=== PATIENT | male | born 1950 | race Caucasian/White ===

== ENCOUNTER 2017-07-02 20:19 | Emergency (ER) | payer OTHER, SELFPAY ==
[2017-07-02 20:37] VITALS: BP 137/75; PULSE 140; RESP 12; TEMP 36.4; O2SAT 99
--- NOTE | 2017-07-02 20:58 | DI.RAD.S_ITS ---
PROCEDURE: XR CHEST 1V INDICATIONS: afib TECHNIQUE: One view of the chest was acquired. COMPARISON: None. FINDINGS: Surgical changes and devices: None. Lungs and pleura: No pleural effusions or pneumothorax. Lungs are clear. Mediastinum: Mediastinal contours appear normal. Heart size is normal. Bones and chest wall: No suspicious bony lesions. Overlying soft tissues appear unremarkable. IMPRESSION: No acute process. Dictated by: Jo-Ann Decker M.D. on 07/02/2017 at 21:13 Approved by: Jo-Ann Decker M.D. on 07/02/2017 at 21:13
[2017-07-02 21:11] LABS: Calcium 9.1 mg/dL (8.4-10.2); Estimated Glomerular Filt Rate > 60.0 mL/min (>60); Glucose 115 mg/dL (80-110); HEMOLYSIS 28 (0-50); Magnesium 2.2 mg/dL (1.6-2.3); Potassium 3.8 mmol/L (3.4-5.1); Sodium 142 mmol/L (137-145)
[2017-07-02 21:17] LABS: Add Manual Diff / Slide Review NO; Basophils Percent Auto 0.5 % (0-2); Eosinophils Percent Auto 2.8 % (2-4); Hematocrit 41.7 % (41-53); Hemoglobin 14.7 g/dL (13.5-17.5); Lymphocytes Percent Auto 30.8 % (25-40); Mean Corpuscular HGB Conc 35.3 % (30-36); Mean Corpuscular Hemoglobin 34.2 PG (26-34); Mean Corpuscular Volume 97.1 fL (80-100); Neutrophils Absolute Auto 5100 /uL (3000-5900); Neutrophils Percent Auto 58.9 % (50-75); Platelet Count 190 X10^3/uL (150-400); Red Blood Cell Count 4.29 X10^6/uL (4.5-5.9); Red Cell Distribution Width 13.1 % (11.6-14.8); White Blood Cell Count 8.7 X10^3/uL (4.5-11.0)
[2017-07-02 21:24] LABS: Troponin I < 0.012 ng/mL (0.01-0.034)
[2017-07-02 21:28] LABS: Free T4, Direct Thyroxine 0.84 ng/dL (0.78-2.19)
[2017-07-02] MEDS: SODIUM CHLORIDE 0.9% 1,000 ML 1000 ML IV (21:37)
[2017-07-02 21:42] LABS: Thyroid Stimulating Hormone 2.11 uIU/mL (0.47-4.68)
[2017-07-03] VITALS (8 sets, daily range): BP systolic 110–169; BP diastolic 73–94; PULSE 56–106; RESP 12–17; O2SAT 96–100
[2017-07-03] MEDS: ETOMIDATE 2 MG/ML VIAL 10 MG IV
--- NOTE | 2017-07-03 00:19 | ED.ARRPALP ---
HPI - Arrhythmia/Palpitations General Chief Complaint: Arrhythmia/Palpitations Stated Complaint: AFIB History of Present Illness HPI narrative: HPI 67-year-old male with a history of pAfib presents for evaluation of one day of palpitations and exercise intolerance. Patient reports a long-standing issue with atrial fibrillation, patient ablation 4 years ago. 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 Patient takes aspirin daily as is normally in a sinus rhythm. Last atrial fibrillation was approximately one year ago. Patient is certain that his symptoms began at 24 hours ago, patient was seated and felt a sudden change in his heart rate consistent with his long-standing symptomatology with atrial fibrillation. * Medications: denies recent medication changes. * Caffeine: denies any change in baseline caffeine use. * Alcohol: denies preceding significant alcohol use. * Drugs: denies stimulant use. M/S/F/SocHx notable for: please see HPI; remainder reviewed with patient and in chart. ROS: Negative constitutional, eye, cardiovascular, pulmonary, GI, , MSK, skin, neurologic, psychiatric, endocrine unless noted in the HPI. Exam Gen: Pleasant, non-toxic appearing, resting comfortably. HEENT: NC, AT, PEERL, EOMI. Resp: Clear to auscultation bilaterally, normal work of breathing, no accessory muscle usage. Card: Irregularly irregular rate with no murmurs, rubs, or gallops, extremities warm and well perfused. GI: Non-tender to palpation throughout all quadrants, no focal tenderness at McBurney's point, negative Alejo's sign, non-distended, no rebound or guarding. : No suprapubic tenderness to palpation.No CVA tenderness to percussion bilaterally.Deferred MSK: No visible deformities, strength and tone without visually appreciable deficit. Skin: Normal color with no visible lesions. Neuro: AO x 3, no facial asymmetry, vision and hearing WNL. Psych: Mood and affect appropriate. Labs / Imaging: EKG: AFib, no new ST segment changes, new LBBB, or T-wave changes that would suggest acute ischemia. CXR: No acute cardiopulmonary disease process. WBC 8.7, 14.7, sodium 142, potassium 3.8, creatinine 1.00, magnesium 2.2, troponin less than 0.012 TSH 2.11, free T4 0.4 EKG (repeat): SR 58 bpm, no new ST segment changes, new LBBB, or T-wave changes that would suggest acute ischemia. MDM Previous chart, nursing note, labs, imaging, and vitals reviewed. A: 67-year-old male with a history of pAfib presents for evaluation of one day of palpitations and exercise intolerance. DDx & Evaluation: * Rate Control: after extensive discussion regarding treatment options the patient elected to pursue electrical cardioversion. This was successfully performed as documented below. Patient was premedicated with Eliquis. * Etiology * Anemia - H&H within normal limits. * Infection - history, exam, and chest x-ray without evidence of clinically appreciable active infectious process. * Cardiac (myocarditis/pericarditis/ACS/heart failure) - doubt myocarditis and pericarditis given the absence of characteristic changes in the patient's repeat ECG as well as the lack of significant troponin elevation, similarly doubt ACS given the absence of ischemia and are negative troponin. Doubt heart failure given the lack of edema on imaging and exam as well as a negative history. * Hyperthyroidism - TSH within normal limits. * PE - doubt PE given the absence of chest pain, prior DVT or PE, or other identifiable risk factors; as dyspnea in the setting of new onset A. fib is not an independent predictor further evaluation is not presently indicated. * Drugs - history without evidence for recent alcohol, caffeine, or other stimulant use that may have triggered today's presenting episode. * ASHA - no known history of obstructive sleep apnea, furthermore the patient's habitus is not strongly suggestive of an undiagnosed sleep apnea; further evaluation deferred to the patient's primary care physician. * Idiopathic/age - suspect idiopathic given the relative exclusion of alternate etiologies, further evaluation deferred to the patient's primary physician. * Anticoagulation - CHADS-VASc value (Age - 1, Gender - 0, CHF - 0, HTN - 0, Stroke/TIA/Thromboembolism - 0, Vascular Disease - 0, DM - 0); 30 day Post conversion prescription for Eliquis provided. Critical Care Time Organ system(s): Cardiovascular. Intervention: Assessment of the patient, interpretation of studies, and communication with the patient. Time: 30 minutes were spent directly related to patient care exclusive of separately billed procedures. Impression: Atrial fibrillation (please reference below for remainder of encounter information) After discussion with the patient regarding anticoagulation options for their atrial fibrillation including risks and benefits of different treatment options Apixiban was chosen for anticoagulation. [As the patient weighs > 60 kg, has a Cr < 1.5 mg/dL, and a is not taking any strong CY inducers (Carbamazepine, Enzalutamide, Fosphenytoin, Lumacaftor, Mitotane, Phenobarbital, Phenytoin, Primidone, Rifabutin, Rifampin, or Rifapentine - per patient and chart), the were prescribed 5 mg BID for stroke prophylaxis for their atrial fibrillation SEDATION Pre-Procedure: Consent: Written. Risks and benefits including adverse drug reaction, pain, nausea, vomiting, the need for respiratory support, and in extremely rare instances organ damage and , were reviewed with the patient, the patient understood and consented to sedation. ASA: 1, Mallampati 2 , 4+ hours NPO. Y ??? Patient (name and ID) and procedure. Y ??? airway cart Y ??? BVM Y ??? Suction Y ??? capnography, SaO2, HR, BP functioning and within acceptable limits. Patient on supplemental oxygen via a nasal cannula. Y ??? review potential complications and management plans. Procedure The patient was given a total of 10 mg of Etomidate with deep sedation achieved. There were no significant adverse events and the patient tolerated the procedure well. Total time: 15 minutes. Post-Procedure I remained at the bedside until the patient was clearing sedation, vitals signs, airway and overall clinical condition were stable. RT and nursing remained present monitoring the patient per protocol through complete clearing of sedation and I was immediately available in the department throughout. Cardioversion Indication: Atrial Fibrillation. Consent: Written. Risks and benefits including post-procedural arrhythmias, pain, electrical tinoco, and stroke were discussed with the patient. The patient understood and agreed to proceed with the procedure. After a time out in which the patient's identity was confirmed verbally and by their wrist band, synchronized cardioversion was performed at 200 J via right upper and left lower chest. A continuous 3 lead electrocardiogram demonstrated conversion from atrial fibrillation to a sinus rhythm. There were no complications and the patient tolerated the procedure well. Related Data Home Medications Medication Instructions Recorded Confirmed CA PANTOTHENATE/FOLIC ACID/VIT 1 tab PO Q DAY #0 09/22/11 (MULTIVITAMIN) CHOLECALCIFEROL (VITAMIN D3) 2,000 iu PO Q DAY #0 09/22/11 (Vitamin D) Fish Oil (#CARDI-OMEGA) 1,000 mg PO Q DAY #0 09/22/11 ASCORBIC ACID (VITAMIN C) 1,000 mg PO #0 10/20/11 [fiber tab] Q DAY #0 05/01/16 aspirin 81 PO Q DAY #0 05/01/16 docusate sodium 200 PO Q DAY #0 05/01/16 Previous Rx's Medication Instructions Recorded metoprolol tartrate 12.5 mg PO QDAY #45 tab 05/10/17 tamsulosin [Flomax] 0.4 mg PO QDAY #90 cap 05/10/17 varicella-zoster gE-AS01B (PF) 0.5 ml IM X1 #1 ea 05/10/17 [Shingrix (PF)] apixaban [Eliquis] 5 mg PO BID #60 tab 07/03/17 Allergies Allergy/AdvReac Type Severity Reaction Status Date / Time No Known Allergies Allergy Uncoded 05/23/17 11:46 PFSH Surgical History History of cataract removal with insertion of prosthetic lens History of oral surgery Status post arthroscopy Family History Brother Age: 69 Diabetes mellitus Heart disease Prostate cancer, Onset Age: 67 Father Diabetes mellitus Heart disease Hypertension High cholesterol Alcoholism Parkinsons Social History Smoking Status: Never smoker Exam Initial Vital Signs Initial Vital Signs: Vital Signs Temperature 97.6 F 07/02/17 20:37 Pulse Rate 140 H 07/02/17 20:37 Respiratory Rate 12 07/02/17 20:37 Blood Pressure 137/75 H 07/02/17 20:37 Pulse Oximetry 99 07/02/17 20:37 Course Orders Ordered: ED Orders 07/02/17 20:30 Basic Metabolic Panel Stat Complete Blood Count AUTO DIFF Stat Free T4 Free Thyroxine Stat Magnesium Stat Thyroid Stimulating Hormone Stat Troponin I Stat 07/02/17 20:58 XR chest 1V Stat 07/03/17 EKG-12 Lead Routine Discontinued Medications Apixaban (Eliquis) 5 mg PO NOW ONE Stop: 07/02/17 22:40 Last Admin: 07/03/17 00:39 Dose: 5 mg Etomidate (Amidate) 10 mg IV NOW ONE Stop: 07/02/17 22:40 Sodium Chloride (Normal Saline 0.9%) 1,000 mls @ 1,000 mls/hr IV BOLUS ONE Stop: 07/02/17 21:57 Last Admin: 07/02/17 21:37 Dose: 1,000 mls/hr Vital Signs - 8 hr 07/02/17 20:37 07/03/17 00:27 Temperature 97.6 F Pulse Rate 140 H 56 L Respiratory Rate 12 12 Blood Pressure 137/75 H Blood Pressure [Left Arm] 125/81 H Pulse Oximetry 99 98 MDM - Arrhythmia/Palpitations Lab Data Result diagrams: 07/02/17 20:30 07/02/17 20:30 Lab Results 07/02/17 07/02/17 07/02/17 Range/Units 20:30 20:30 20:30 WBC 8.7 (4.5-11.0) X10^3/uL RBC 4.29 L (4.5-5.9) X10^6/uL Hgb 14.7 (13.5-17.5) g/dL Hct 41.7 (41-53) % MCV 97.1 (80-100) fL MCH 34.2 H (26-34) PG MCHC 35.3 (30-36) % RDW 13.1 (11.6-14.8) % Plt Count 190 (150-400) X10^3/uL Neut % (Auto) 58.9 (50-75) % Lymph % (Auto) 30.8 (25-40) % Kerr % (Auto) 7.0 (3-14) % Eos % (Auto) 2.8 (2-4) % Baso % (Auto) 0.5 (0-2) % Neut # (Auto) 5100 (0173-0065) /uL Sodium 142 (137-145) mmol/L Potassium 3.8 (3.4-5.1) mmol/L Chloride 105.0 (98-107) mmol/L Carbon Dioxide 25.0 (22-32) mmol/L BUN 21.0 H (9-20) mg/dL Creatinine 1.00 (0.66-1.25) mg/dL Estimated GFR > 60.0 (>60) mL/min BUN/Creatinine Ratio 21.0 (6-22) Glucose 115 H (80-110) mg/dL Calcium 9.1 (8.4-10.2) mg/dL Magnesium 2.2 (1.6-2.3) mg/dL Troponin I < 0.012 (0.01-0.034) ng/mL TSH 2.11 (0.47-4.68) uIU/mL Free T4 0.84 (0.78-2.19) ng/dL Discharge Plan Departure Patient Disposition: Home, Self-Care Clinical Impression: Atrial fibrillation Activity Restrictions/Additional Instructions: You were in seen in the [facility] Emergency Department for evaluation of atrial fibrillation. Please read and follow all of the instructions below. 1. 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 2. If you are taking aspirin only for atrial fibrillation stroke prevention please discontinue taking aspirin and take only the prescribed Apixiban (Eliquis). 3. If you have insurance issues with Eliquis, you may use either the video production specialist co-pay card (online at [email or web address]) or contact your primary care physician to transition to an alternate medication. If you have any new symptoms or if you are at all concerned about your health please return immediately to the emergency department. If you do not have a primary care physician, please contact [facility], [facility] at [phone], [facility] at [phone], or [facility] at [phone] to arrange follow up care. If you have health insurance, please also contact your insurer for a list of accepting providers under your policy, you may contact these providers for further health care. Your care today was limited to identifying and treating emergent medical problems only. Many people have subtle differences in their test results that require follow up with their outpatient physician(s) to correctly determine if this represents a normal variation or concerning abnormality with respect to your specific health. The care given to you today was limited to identifying and treating emergent medical problems - you need to request a copy of all of your medical records from today's visit and follow up with your outpatient physician(s) to review both today's visit and your overall health. What is atrial fibrillation and atrial flutter? Atrial fibrillation and flutter are a common heart rhythm problem. This condition puts you at risk of stroke, heart attack, and other problems. Another term for atrial fibrillation is A-fib???. Atrial flutter is also called ???A-flutter???. In people with these rhythms, the electrical signals that control the heartbeat are abnormal. As a result, the top 2 chambers of the heart stop pumping effectively, and a small amount of the blood that should move out of these chambers gets left behind. As the blood pools, it can start to form clots. These clots can travel to the brain through the blood vessels, and cause strokes. In some people, these rhythms never go away. In others, these can come and go, even with treatment. If you had one or more bouts of atrial fibrillation or flutter, but have a normal heart rhythm now, ask your doctor what you can do to keep your atrial fibrillation or flutter from coming back. Some people can reduce their chances of having atrial fibrillation or flutter again by: ? Controlling their blood pressure ? Not drinking a lot of alcohol in one sitting (limit to 1 to 2 drinks in one day) ? Cutting down on caffeine ? Getting treatment for an overactive thyroid gland ? Getting regular exercise ? Losing weight (if they are overweight) What are the symptoms of atrial fibrillation or flutter?Some people with atrial fibrillation or flutter have no symptoms. When symptoms do occur, they can include: ? Feeling as though your heart is racing, skipping beats, or beating out of sync ? Mild chest tightness or pain ? Feeling lightheaded, dizzy, or like you might pass out ? Having trouble breathing, especially with exercise Is there a test for atrial fibrillation or flutter??? Yes. If your doctor or nurse suspects you have atrial fibrillation or flutter, he or she will probably do a test called an electrocardiogram. This test, also known as an ECG or EKG, measures the electrical activity in your heart. How is atrial fibrillation or flutter treated?In some cases, atrial fibrillation or flutter goes away on its own, even without treatment. But some people do need treatment. Treatment can include one or more of these: ? Medicines to control the speed or rhythm of the heartbeat ? Medicines to keep clots from forming ? A treatment called cardioversion that involves applying a mild electrical current to the heart to fix its rhythm ? Treatments called ablation, which use heat (radiofrequency ablation) or cold (cryoablation) to destroy the small part of the heart that is sending abnormal electrical signals ? A device called a pacemaker that is implanted in your body and sends electrical signals to the heart to control the heartbeat What will my life be like??? Many people with atrial fibrillation or flutter are able to live normal lives. Still, it is important that you take the medicines your doctor prescribes every day. Taking your medicines as directed can help reduce the chances that your Atrial fibrillation or flutter will cause a stroke. Apixaban (Brand Names: Eliquis) * Please take this medication as prescribed. * Please take the medication for the full duration of the prescription. * If you feel you are experiencing a side effect, please call your physician or the emergency department. * This is a blood thinner used to prevent and treat the formation of clots in your blood vessels. This includes clots in the deep veins of your upper or lower extremities (deep vein thromboses), clots in your lungs (pulmonary embolism), or prevention of clots due to an irregular heart beat (atrial fibrillation). * Tell all health care providers that you are on this medication. Apixaban Side Effects: * This is a blood thinner - it is used to prevent life threatening clots in the lungs as well as strokes. However it will increase your risk of both serious and minor bleeding. It was prescribed because your doctor felt that benefits significantly outwieghed the risks. However, Apixaban increases the risk of serious bleeding into your head (hemorrhagic stroke), gastrointestinal bleeding, and bleeding if you suffer a traumatic injury. You may also experience longer periods of bleeding after minor injuries or from your gums when brushing your teeth. Talk to your doctor before taking this medication if you have any of the following: * If you have an allergy to apixaban or any other part of this drug. * If you are allergic to any drugs like this one, any other drugs, foods, or other substances. Tell your doctor about the allergy and what signs you had, like rash; hives; itching; shortness of breath; wheezing; cough; swelling of face, lips, tongue, or throat; or any other signs. * If you have any of these health problems: Active bleeding or liver problems. * If you have had a heart valve replaced. * If you are taking any of these drugs: Carbamazepine, phenytoin, rifampin, or [place]'s wort. * This is not a list of all drugs or health problems that interact with this drug. * Tell your doctor and pharmacist about all of your drugs (prescription or OTC, natural products, vitamins) and health problems. You must check to make sure that it is safe for you to take this drug with all of your drugs and health problems. Do not start, stop, or change the dose of any drug without checking with your doctor. Apixaban Precautions: * If you fall or hurt yourself, or if you hit your head, call your doctor right away. Talk with your doctor even if you feel fine. * You may bleed more easily. Be careful and avoid injury. Use a soft toothbrush and an electric razor. * Very bad and sometimes deadly bleeding problems have happened with this drug. Talk with the doctor. * If you are 80 or older, use this drug with care. You could have more side effects. * Tell your doctor if you are or plan on getting . You will need to talk about the benefits and risks of using this drug while you are . * Tell your doctor if you are breast-feeding. You will need to talk about any risks to your baby. * Do not run out of this medication. Call your doctor well before your prescription runs out. Apixaban Drug Interactions: * The effects of some drugs can change if you take other drugs or herbal products at the same time. This can increase your risk for serious side effects or may cause your medications not to work correctly. These drug interactions are possible, but do not always occur. Your doctor or pharmacist can often prevent or manage interactions by changing how you use your medications or by close monitoring. * To help your doctor and pharmacist give you the best care, be sure to tell your doctor and pharmacist about all the products you use (including prescription drugs, nonprescription drugs, and herbal products) before starting treatment with this product. While using this product, do not start, stop, or change the dosage of any other medicines you are using without your doctor's approval. * Some products that may interact with this drug include: Carbamazepine; Enzalutamide; Fosphenytoin; Lumacaftor; Mitotane; phenobarbital; Phenytoin; Primidone; Rifabutin; Rifampin; Rifapentine, Omacetaxine, Abiraterone Acetate; Amiodarone; Asunaprevir; AtorvaSTATin; Azithromycin (Systemic); Carvedilol; Crizotinib; CycloSPORINE (Systemic); Daclatasvir; Dipyridamole; Dronedarone; Eliglustat; Erythromycin (Systemic); Flibanserin; Ibrutinib; Ivacaftor; Lapatinib; Ledipasvir; Lomitapide; Mefloquine; Mirabegron; NiCARdipine; Nilotinib; Progesterone; Propafenone; Propranolol; QuiNIDine; QuiNINE; Ranolazine; Reserpine; Rolapitant; Simeprevir; SUNItinib; Tacrolimus (Systemic); Tamoxifen; Vandetanib; Vemurafenib; Verapamil. Please notify your doctor and pharmacist if you are on any of these medications or start these medications while on Apixaban. * This document does not contain all possible drug interactions. Keep a list of all the products you use. Share this list with your doctor and pharmacist to lessen your risk for serious medication problems. Prescriptions: New apixaban [Eliquis] 5 mg tablet 5 mg PO BID Qty: 60 RF: 0 No Action CA PANTOTHENATE/FOLIC ACID/VIT (MULTIVITAMIN) 1 tab PO Q DAY Qty: 0 RF: 0 Fish Oil (#CARDI-OMEGA) 1,000 mg PO Q DAY Qty: 0 RF: 0 CHOLECALCIFEROL (VITAMIN D3) (Vitamin D) 2,000 iu PO Q DAY Qty: 0 RF: 0 ASCORBIC ACID (VITAMIN C) 1,000 mg PO Qty: 0 RF: 0 aspirin 81 MG tablet,delayed release (DR/EC) 81 PO Q DAY Qty: 0 RF: 0 docusate sodium 100 MG capsule 200 PO Q DAY Qty: 0 RF: 0 [fiber tab] Q DAY Qty: 0 RF: 0 varicella-zoster gE-AS01B (PF) [Shingrix (PF)] 50 MCG/0.5 ML suspension for reconstitution 0.5 ml IM X1 Qty: 1 RF: 0 tamsulosin [Flomax] 0.4 MG capsule,extended release 24hr 0.4 mg PO QDAY Qty: 90 RF: 3 metoprolol tartrate 25 MG tablet 12.5 mg PO QDAY Qty: 45 RF: 3
[2017-07-03] MEDS: APIXABAN 5 MG TABLET PO (00:39)
--- NOTE | 2017-07-03 01:46 | ED_ITS ---
HPI - Arrhythmia/Palpitations General Chief Complaint: Arrhythmia/Palpitations Stated Complaint: AFIB History of Present Illness HPI narrative: HPI 67-year-old male with a history of pAfib presents for evaluation of one day of palpitations and exercise intolerance. Patient reports a long-standing issue with atrial fibrillation, patient ablation 4 years ago. 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 Patient takes aspirin daily as is normally in a sinus rhythm. Last atrial fibrillation was approximately one year ago. Patient is certain that his symptoms began at 24 hours ago, patient was seated and felt a sudden change in his heart rate consistent with his long-standing symptomatology with atrial fibrillation. * Medications: denies recent medication changes. * Caffeine: denies any change in baseline caffeine use. * Alcohol: denies preceding significant alcohol use. * Drugs: denies stimulant use. M/S/F/SocHx notable for: please see HPI; remainder reviewed with patient and in chart. ROS: Negative constitutional, eye, cardiovascular, pulmonary, GI, , MSK, skin , neurologic, psychiatric, endocrine unless noted in the HPI. Exam Gen: Pleasant, non-toxic appearing, resting comfortably. HEENT: NC, AT, PEERL, EOMI. Resp: Clear to auscultation bilaterally, normal work of breathing, no accessory muscle usage. Card: Irregularly irregular rate with no murmurs, rubs, or gallops, extremities warm and well perfused. GI: Non-tender to palpation throughout all quadrants, no focal tenderness at McBurney's point, negative Alejo's sign, non-distended, no rebound or guarding. : No suprapubic tenderness to palpation.No CVA tenderness to percussion bilaterally.Deferred MSK: No visible deformities, strength and tone without visually appreciable deficit. Skin: Normal color with no visible lesions. Neuro: AO x 3, no facial asymmetry, vision and hearing WNL. Psych: Mood and affect appropriate. Labs / Imaging: EKG: AFib, no new ST segment changes, new LBBB, or T-wave changes that would suggest acute ischemia. CXR: No acute cardiopulmonary disease process. WBC 8.7, 14.7, sodium 142, potassium 3.8, creatinine 1.00, magnesium 2.2, troponin less than 0.012 TSH 2.11, free T4 0.4 EKG (repeat): SR 58 bpm, no new ST segment changes, new LBBB, or T-wave changes that would suggest acute ischemia. MDM Previous chart, nursing note, labs, imaging, and vitals reviewed. A: 67-year-old male with a history of pAfib presents for evaluation of one day of palpitations and exercise intolerance. DDx & Evaluation: * Rate Control: after extensive discussion regarding treatment options the patient elected to pursue electrical cardioversion. This was successfully performed as documented below. Patient was premedicated with Eliquis. * Etiology * Anemia - H&H within normal limits. * Infection - history, exam, and chest x-ray without evidence of clinically appreciable active infectious process. * Cardiac (myocarditis/pericarditis/ACS/heart failure) - doubt myocarditis and pericarditis given the absence of characteristic changes in the patient's repeat ECG as well as the lack of significant troponin elevation, similarly doubt ACS given the absence of ischemia and are negative troponin. Doubt heart failure given the lack of edema on imaging and exam as well as a negative history. * Hyperthyroidism - TSH within normal limits. * PE - doubt PE given the absence of chest pain, prior DVT or PE, or other identifiable risk factors; as dyspnea in the setting of new onset A. fib is not an independent predictor further evaluation is not presently indicated. * Drugs - history without evidence for recent alcohol, caffeine, or other stimulant use that may have triggered today's presenting episode. * ASHA - no known history of obstructive sleep apnea, furthermore the patient's habitus is not strongly suggestive of an undiagnosed sleep apnea; further evaluation deferred to the patient's primary care physician. * Idiopathic/age - suspect idiopathic given the relative exclusion of alternate etiologies, further evaluation deferred to the patient's primary physician. * Anticoagulation - CHADS-VASc value (Age - 1, Gender - 0, CHF - 0, HTN - 0, Stroke/TIA/Thromboembolism - 0, Vascular Disease - 0, DM - 0); 30 day Post conversion prescription for Eliquis provided. Critical Care Time Organ system(s): Cardiovascular. Intervention: Assessment of the patient, interpretation of studies, and communication with the patient. Time: 30 minutes were spent directly related to patient care exclusive of separately billed procedures. Impression: Atrial fibrillation (please reference below for remainder of encounter information) After discussion with the patient regarding anticoagulation options for their atrial fibrillation including risks and benefits of different treatment options Apixiban was chosen for anticoagulation. [As the patient weighs > 60 kg, has a Cr < 1.5 mg/dL, and a is not taking any strong CY inducers (Carbamazepine, Enzalutamide, Fosphenytoin, Lumacaftor, Mitotane, Phenobarbital, Phenytoin, Primidone, Rifabutin, Rifampin, or Rifapentine - per patient and chart), the were prescribed 5 mg BID for stroke prophylaxis for their atrial fibrillation SEDATION Pre-Procedure: Consent: Written. Risks and benefits including adverse drug reaction, pain, nausea, vomiting, the need for respiratory support, and in extremely rare instances organ damage and , were reviewed with the patient, the patient understood and consented to sedation. ASA: 1, Mallampati 2 , 4+ hours NPO. Y ? Patient (name and ID) and procedure. Y ? airway cart Y ? BVM Y ? Suction Y ? capnography, SaO2, HR, BP functioning and within acceptable limits. Patient on supplemental oxygen via a nasal cannula. Y ? review potential complications and management plans. Procedure The patient was given a total of 10 mg of Etomidate with deep sedation achieved. There were no significant adverse events and the patient tolerated the procedure well. Total time: 15 minutes. Post-Procedure I remained at the bedside until the patient was clearing sedation, vitals signs , airway and overall clinical condition were stable. RT and nursing remained present monitoring the patient per protocol through complete clearing of sedation and I was immediately available in the department throughout. Cardioversion Indication: Atrial Fibrillation. Consent: Written. Risks and benefits including post-procedural arrhythmias, pain , electrical tinoco, and stroke were discussed with the patient. The patient understood and agreed to proceed with the procedure. After a time out in which the patient's identity was confirmed verbally and by their wrist band, synchronized cardioversion was performed at 200 J via right upper and left lower chest. A continuous 3 lead electrocardiogram demonstrated conversion from atrial fibrillation to a sinus rhythm. There were no complications and the patient tolerated the procedure well. Related Data Home Medications Medication Instructions Recorded Confirmed CA PANTOTHENATE/FOLIC ACID/VIT 1 tab PO Q DAY #0 09/22/11 (MULTIVITAMIN) CHOLECALCIFEROL (VITAMIN D3) 2,000 iu PO Q DAY #0 09/22/11 (Vitamin D) Fish Oil (#CARDI-OMEGA) 1,000 mg PO Q DAY #0 09/22/11 ASCORBIC ACID (VITAMIN C) 1,000 mg PO #0 10/20/11 [fiber tab] Q DAY #0 05/01/16 aspirin 81 PO Q DAY #0 05/01/16 docusate sodium 200 PO Q DAY #0 05/01/16 Previous Rx's Medication Instructions Recorded metoprolol tartrate 12.5 mg PO QDAY #45 tab 05/10/17 tamsulosin [Flomax] 0.4 mg PO QDAY #90 cap 05/10/17 varicella-zoster gE-AS01B (PF) 0.5 ml IM X1 #1 ea 05/10/17 [Shingrix (PF)] apixaban [Eliquis] 5 mg PO BID #60 tab 07/03/17 Allergies Allergy/AdvReac Type Severity Reaction Status Date / Time No Known Allergies Allergy Uncoded 05/23/17 11:46 PFSH Surgical History History of cataract removal with insertion of prosthetic lens History of oral surgery Status post arthroscopy Family History Brother Age: 69 Diabetes mellitus Heart disease Prostate cancer, Onset Age: 67 Father Diabetes mellitus Heart disease Hypertension High cholesterol Alcoholism Parkinsons Social History Smoking Status: Never smoker Exam Initial Vital Signs Initial Vital Signs: Vital Signs Temperature 97.6 F 07/02/17 20:37 Pulse Rate 140 H 05/21/18 20:37 Respiratory Rate 12 07/02/17 20:37 Blood Pressure 137/75 H 07/02/17 20:37 Pulse Oximetry 99 07/02/17 20:37 Course Orders Ordered: ED Orders 07/02/17 20:30 Basic Metabolic Panel Stat Complete Blood Count AUTO DIFF Stat Free T4 Free Thyroxine Stat Magnesium Stat Thyroid Stimulating Hormone Stat Troponin I Stat 07/02/17 20:58 XR chest 1V Stat 07/03/17 EKG-12 Lead Routine Discontinued Medications Apixaban (Eliquis) 5 mg PO NOW ONE Stop: 07/02/17 22:40 Last Admin: 07/03/17 00:39 Dose: 5 mg Etomidate (Amidate) 10 mg IV NOW ONE Stop: 07/02/17 22:40 Sodium Chloride (Normal Saline 0.9%) 1,000 mls @ 1,000 mls/hr IV BOLUS ONE Stop: 07/02/17 21:57 Last Admin: 07/02/17 21:37 Dose: 1,000 mls/hr Vital Signs - 8 hr 07/02/17 20:37 07/03/17 00:27 Temperature 97.6 F Pulse Rate 140 H 56 L Respiratory Rate 12 12 Blood Pressure 137/75 H Blood Pressure [Left Arm] 125/81 H Pulse Oximetry 99 98 MDM - Arrhythmia/Palpitations Lab Data Result diagrams: 07/02/17 20:30 07/02/17 20:30 Lab Results 07/02/17 07/02/17 07/02/17 Range/Units 20:30 20:30 20:30 WBC 8.7 (4.5-11.0) X10^3/uL RBC 4.29 L (4.5-5.9) X10^6/uL Hgb 14.7 (13.5-17.5) g/dL Hct 41.7 (41-53) % MCV 97.1 (80-100) fL MCH 34.2 H (26-34) PG MCHC 35.3 (30-36) % RDW 13.1 (11.6-14.8) % Plt Count 190 (150-400) X10^3/uL Neut % (Auto) 58.9 (50-75) % Lymph % (Auto) 30.8 (25-40) % [place]ila % (Auto) 7.0 (3-14) % Eos % (Auto) 2.8 (2-4) % Baso % (Auto) 0.5 (0-2) % Neut # (Auto) 5100 (0776-3424) /uL Sodium 142 (137-145) mmol/L Potassium 3.8 (3.4-5.1) mmol/L Chloride 105.0 (98-107) mmol/L Carbon Dioxide 25.0 (22-32) mmol/L BUN 21.0 H (9-20) mg/dL Creatinine 1.00 (0.66-1.25) mg/dL Estimated GFR > 60.0 (>60) mL/min BUN/Creatinine Ratio 21.0 (6-22) Glucose 115 H (80-110) mg/dL Calcium 9.1 (8.4-10.2) mg/dL Magnesium 2.2 (1.6-2.3) mg/dL Troponin I < 0.012 (0.01-0.034) ng/mL TSH 2.11 (0.47-4.68) uIU/mL Free T4 0.84 (0.78-2.19) ng/dL Discharge Plan Departure Patient Disposition: Home, Self-Care Clinical Impression: Atrial fibrillation Activity Restrictions/Additional Instructions: You were in seen in the [facility] Emergency Department for evaluation of atrial fibrillation. Please read and follow all of the instructions below. 1. 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 2. If you are taking aspirin only for atrial fibrillation stroke prevention please discontinue taking aspirin and take only the prescribed Apixiban (Eliquis ). 3. 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 If you have any new symptoms or if you are at all concerned about your health please return immediately to the emergency department. If you do not have a primary care physician, please contact [facility], [facility] at [phone], [facility] medicine at [phone], or [facility] at [phone] to arrange follow up care. If you have health insurance, please also contact your insurer for a list of accepting providers under your policy, you may contact these providers for further health care. Your care today was limited to identifying and treating emergent medical problems only. Many people have subtle differences in their test results that require follow up with their outpatient physician(s) to correctly determine if this represents a normal variation or concerning abnormality with respect to your specific health. The care given to you today was limited to identifying and treating emergent medical problems - you need to request a copy of all of your medical records from today's visit and follow up with your outpatient physician(s) to review both today's visit and your overall health. What is atrial fibrillation and atrial flutter? Atrial fibrillation and flutter are a common heart rhythm problem. This condition puts you at risk of stroke, heart attack, and other problems. Another term for atrial fibrillation is A-fib?. Atrial flutter is also called ?A- flutter?. In people with these rhythms, the electrical signals that control the heartbeat are abnormal. As a result, the top 2 chambers of the heart stop pumping effectively, and a small amount of the blood that should move out of these chambers gets left behind. As the blood pools, it can start to form clots. These clots can travel to the brain through the blood vessels, and cause strokes. In some people, these rhythms never go away. In others, these can come and go, even with treatment. If you had one or more bouts of atrial fibrillation or flutter, but have a normal heart rhythm now, ask your doctor what you can do to keep your atrial fibrillation or flutter from coming back. Some people can reduce their chances of having atrial fibrillation or flutter again by: ? Controlling their blood pressure ? Not drinking a lot of alcohol in one sitting (limit to 1 to 2 drinks in one day) ? Cutting down on caffeine ? Getting treatment for an overactive thyroid gland ? Getting regular exercise ? Losing weight (if they are overweight) What are the symptoms of atrial fibrillation or flutter?Some people with atrial fibrillation or flutter have no symptoms. When symptoms do occur, they can include: ? Feeling as though your heart is racing, skipping beats, or beating out of sync ? Mild chest tightness or pain ? Feeling lightheaded, dizzy, or like you might pass out ? Having trouble breathing, especially with exercise Is there a test for atrial fibrillation or flutter?? Yes. If your doctor or nurse suspects you have atrial fibrillation or flutter, he or she will probably do a test called an electrocardiogram. This test, also known as an ECG or EKG, measures the electrical activity in your heart. How is atrial fibrillation or flutter treated?In some cases, atrial fibrillation or flutter goes away on its own, even without treatment. But some people do need treatment. Treatment can include one or more of these: ? Medicines to control the speed or rhythm of the heartbeat ? Medicines to keep clots from forming ? A treatment called cardioversion that involves applying a mild electrical current to the heart to fix its rhythm ? Treatments called ablation, which use heat (radiofrequency ablation) or cold (cryoablation) to destroy the small part of the heart that is sending abnormal electrical signals ? A device called a pacemaker that is implanted in your body and sends electrical signals to the heart to control the heartbeat What will my life be like?? Many people with atrial fibrillation or flutter are able to live normal lives. Still, it is important that you take the medicines your doctor prescribes every day. Taking your medicines as directed can help reduce the chances that your Atrial fibrillation or flutter will cause a stroke. Apixaban (Brand Names: Eliquis) * Please take this medication as prescribed. * Please take the medication for the full duration of the prescription. * If you feel you are experiencing a side effect, please call your physician or the emergency department. * This is a blood thinner used to prevent and treat the formation of clots in your blood vessels. This includes clots in the deep veins of your upper or lower extremities (deep vein thromboses), clots in your lungs (pulmonary embolism), or prevention of clots due to an irregular heart beat (atrial fibrillation). * Tell all health care providers that you are on this medication. Apixaban Side Effects: * This is a blood thinner - it is used to prevent life threatening clots in the lungs as well as strokes. However it will increase your risk of both serious and minor bleeding. It was prescribed because your doctor felt that benefits significantly outwieghed the risks. However, Apixaban increases the risk of serious bleeding into your head (hemorrhagic stroke), gastrointestinal bleeding , and bleeding if you suffer a traumatic injury. You may also experience longer periods of bleeding after minor injuries or from your gums when brushing your teeth. Talk to your doctor before taking this medication if you have any of the following: * If you have an allergy to apixaban or any other part of this drug. * If you are allergic to any drugs like this one, any other drugs, foods, or other substances. Tell your doctor about the allergy and what signs you had, like rash; hives; itching; shortness of breath; wheezing; cough; swelling of face, lips, tongue, or throat; or any other signs. * If you have any of these health problems: Active bleeding or liver problems. * If you have had a heart valve replaced. * If you are taking any of these drugs: Carbamazepine, phenytoin, rifampin, or [place]'s wort. * This is not a list of all drugs or health problems that interact with this drug. * Tell your doctor and pharmacist about all of your drugs (prescription or OTC, natural products, vitamins) and health problems. You must check to make sure that it is safe for you to take this drug with all of your drugs and health problems. Do not start, stop, or change the dose of any drug without checking with your doctor. Apixaban Precautions: * If you fall or hurt yourself, or if you hit your head, call your doctor right away. Talk with your doctor even if you feel fine. * You may bleed more easily. Be careful and avoid injury. Use a soft toothbrush and an electric razor. * Very bad and sometimes deadly bleeding problems have happened with this drug. Talk with the doctor. * If you are 80 or older, use this drug with care. You could have more side effects. * Tell your doctor if you are or plan on getting . You will need to talk about the benefits and risks of using this drug while you are . * Tell your doctor if you are breast-feeding. You will need to talk about any risks to your baby. * Do not run out of this medication. Call your doctor well before your prescription runs out. Apixaban Drug Interactions: * The effects of some drugs can change if you take other drugs or herbal products at the same time. This can increase your risk for serious side effects or may cause your medications not to work correctly. These drug interactions are possible, but do not always occur. Your doctor or pharmacist can often prevent or manage interactions by changing how you use your medications or by close monitoring. * To help your doctor and pharmacist give you the best care, be sure to tell your doctor and pharmacist about all the products you use (including prescription drugs, nonprescription drugs, and herbal products) before starting treatment with this product. While using this product, do not start, stop, or change the dosage of any other medicines you are using without your doctor's approval. * Some products that may interact with this drug include: Carbamazepine; Enzalutamide; Fosphenytoin; Lumacaftor; Mitotane; phenobarbital; Phenytoin; Primidone; Rifabutin; Rifampin; Rifapentine, Omacetaxine, Abiraterone Acetate; Amiodarone; Asunaprevir; AtorvaSTATin; Azithromycin (Systemic); Carvedilol; Crizotinib; CycloSPORINE (Systemic); Daclatasvir; Dipyridamole; Dronedarone; Eliglustat; Erythromycin (Systemic); Flibanserin; Ibrutinib; Ivacaftor; Lapatinib; Ledipasvir; Lomitapide; Mefloquine; Mirabegron; NiCARdipine; Nilotinib; Progesterone; Propafenone; Propranolol; QuiNIDine; QuiNINE; Ranolazine; Reserpine; Rolapitant; Simeprevir; SUNItinib; Tacrolimus (Systemic) ; Tamoxifen; Vandetanib; Vemurafenib; Verapamil. Please notify your doctor and pharmacist if you are on any of these medications or start these medications while on Apixaban. * This document does not contain all possible drug interactions. Keep a list of all the products you use. Share this list with your doctor and pharmacist to lessen your risk for serious medication problems. Prescriptions: New apixaban [Eliquis] 5 mg tablet 5 mg PO BID Qty: 60 RF: 0 No Action CA PANTOTHENATE/FOLIC ACID/VIT (MULTIVITAMIN) 1 tab PO Q DAY Qty: 0 RF: 0 Fish Oil (#CARDI-OMEGA) 1,000 mg PO Q DAY Qty: 0 RF: 0 CHOLECALCIFEROL (VITAMIN D3) (Vitamin D) 2,000 iu PO Q DAY Qty: 0 RF: 0 ASCORBIC ACID (VITAMIN C) 1,000 mg PO Qty: 0 RF: 0 aspirin 81 MG tablet,delayed release (DR/EC) 81 PO Q DAY Qty: 0 RF: 0 docusate sodium 100 MG capsule 200 PO Q DAY Qty: 0 RF: 0 [fiber tab] Q DAY Qty: 0 RF: 0 varicella-zoster gE-AS01B (PF) [Shingrix (PF)] 50 MCG/0.5 ML suspension for reconstitution 0.5 ml IM X1 Qty: 1 RF: 0 tamsulosin [Flomax] 0.4 MG capsule,extended release 24hr 0.4 mg PO QDAY Qty: 90 RF: 3 metoprolol tartrate 25 MG tablet 12.5 mg PO QDAY Qty: 45 RF: 3
== END 2017-07-03 01:15 | disposition home or self-care (01) ==
PROVIDERS: Emergency Provider Emergency Medicine; Family Provider Family Medicine; PCP Family Medicine
DX: I48.91 Unspecified atrial fibrillation (principal)
CPT/HCPCS: 36591; 71045; 80048; 83735; 84439; 84443; 84484; 85025; 92960; 93005; 93041; 94770; 96360; 96361; 99152; 99284; 99285; 99291; 99292

== ENCOUNTER → 2017-12-18 11:18 | Outpatient (CLI) | payer OTHER, SELFPAY ==
[2017-12-18 15:40] LABS: Hepatitis B Surface Antigen NEGATIVE s/c (NEGATIVE)
[2017-12-18 15:54] LABS: HIV 1 and 2 Antibody NEGATIVE (NEGATIVE); Hep C Virus Ab w/Reflex Quant NEGATIVE s/c (NEGATIVE)
[2017-12-19 15:30] LABS: Hepatitis B Surf Ab Qualitativ Borderline (Nonreactive)
[2017-12-21 08:10] LABS: Hepatitis B Core Antibody Nonreactive (Nonreactive)
== END ==
PROVIDERS: Visit Provider Internal Medicine
DX: Z20.89 Contact with and (suspected) exposure to other communicable diseases (principal)
CPT/HCPCS: 36415; 86703; 86704; 86706; 86803; 87340

== ENCOUNTER → 2018-12-04 14:55 | Outpatient (ROUT) | payer OTHER, SELFPAY ==
[2018-12-04 15:41] LABS: Aspartate Aminotransferase 32 IU/L (17-59); BUN Creatinine Ratio 27.8 (6-22); Blood Urea Nitrogen 25 mg/dL (9-20); Calcium 9.1 mg/dL (8.4-10.2); Carbon Dioxide 29 mmol/L (22-32); Chloride 102 mmol/L (98-107); Cholesterol 90 mg/dL (140-199); Estimated Glomerular Filt Rate > 60.0 mL/min (>60); Glucose 91 mg/dL (80-110); HDL Cholesterol 32 mg/dL (40-60); HEMOLYSIS < 15 (0-50); LDL Cholesterol Calculated 19 mg/dL (<100); Potassium 4.2 mmol/L (3.4-5.1); Sodium 141 mmol/L (137-145); Triglycerides 193 mg/dL (35-150)
[2018-12-04 16:12] LABS: Prostate Specific Antigen 0.517 ng/mL (0.10-4.00)
== END ==
PROVIDERS: Visit Provider Internal Medicine
DX: E78.2 Mixed hyperlipidemia (principal); N40.0 Benign prostatic hyperplasia without lower urinary tract symptoms; I48.91 Unspecified atrial fibrillation
CPT/HCPCS: 80048; 80061; 84153; 84450

== ENCOUNTER → 2019-01-28 18:55 | Outpatient (ROUT) | payer OTHER, SELFPAY | PROVIDERS: Visit Provider Internal Medicine | DX: R30.0 Dysuria (principal) | CPT/HCPCS: 87077; 87086; 87186 ==

== ENCOUNTER 2019-01-29 16:40 | Emergency (ER) | payer OTHER, SELFPAY ==
[2019-01-29 16:40] VITALS: BP 147/60; PULSE 76; RESP 18; TEMP 36.7; O2SAT 97
--- NOTE | 2019-01-29 17:13 | ED.MALEGU ---
HPI - Male Genitourinary <Dolly MeadeBOZENA - Last Filed: 01/29/19 17:57> General Chief complaint: Urogenital-Male Stated complaint: groin pain Time Seen by Provider: 01/29/19 16:41 Source: patient Mode of arrival: Ambulatory History of Present Illness HPI Narrative: 68yo male with a history of BPH, presents to the emergency department complaining of decreased urinary output over the past 12 hours. He states he was diagnosed with prostatitis yesterday by Dr. Correa and placed on Septra. Patient states he noticed dribbling this morning which progressed to the inability urinate. He states his last urination was a very small amount and was approximately 3 hours ago. He has been taking his tamsulosin for the past few years. Patient reports chills and body aches but no fevers, he states the chills disappear after taking Tylenol and ibuprofen. Patient denies any abdominal pain, nausea, diarrhea, abdominal bloating, chest pain, shortness of breath, or other concerns. Patient did state that he vomited once this morning but denies any nausea at this time. Related Data Home Medications Medication Instructions Recorded Confirmed CA PANTOTHENATE/FOLIC ACID/VIT 1 tab PO Q DAY #0 09/22/11 (MULTIVITAMIN) CHOLECALCIFEROL (VITAMIN D3) 2,000 iu PO Q DAY #0 09/22/11 (Vitamin D) Fish Oil (#CARDI-OMEGA) 1,000 mg PO Q DAY #0 09/22/11 ASCORBIC ACID (VITAMIN C) 1,000 mg PO #0 10/20/11 [fiber tab] Q DAY #0 05/01/16 aspirin 81 PO Q DAY #0 05/01/16 docusate sodium 200 PO Q DAY #0 05/01/16 metoprolol succinate 50 mg 50 mg PO DAILY 12/28/17 01/29/19 tablet,extended release 24 hr rosuvastatin 10 mg tablet 10 mg PO DAILY 12/28/17 01/29/19 dabigatran etexilate [Pradaxa] 150 mg PO BID 01/29/19 01/29/19 flecainide 50 mg PO Q12H 01/29/19 01/29/19 sulfamethoxazole-trimethoprim 1 tab PO [id number] 01/29/19 01/29/19 tamsulosin [Flomax] 0.4 mg PO DAILY 01/29/19 01/29/19 Previous Rx's Medication Instructions Recorded varicella-zoster gE-AS01B (PF) 0.5 ml IM X1 #1 ea 05/10/17 [Shingrix (PF)] Allergies Allergy/AdvReac Type Severity Reaction Status Date / Time No Known Allergies Allergy Uncoded 05/23/17 11:46 Review of Systems <BOZENA Purcell - Last Filed: 01/29/19 17:57> Review of Systems Narrative: REVIEW OF SYSTEMS: GENERAL: Denies fever or chills. HENT: No head trauma. CARDIOVASCULAR: No chest pain. RESPIRATORY: No shortness of breath or cough. GASTROINTESTINAL: No nausea,, or abdominal pain. GENITOURINARY: Complains of decreased urinary output, see HPI. MUSCULOSKELETAL: No trauma. INTEGUMENTARY: No rash, lesions, or pruritus. NEURO: No memory loss or confusion. Patient History <BOZENA Purcell - Last Filed: 01/29/19 17:57> Medical History History of cardioversion (Acute) Obstructive sleep apnea of adult (Chronic) Surgical History H/O cardiac radiofrequency ablation (Acute) History of cataract removal with insertion of prosthetic lens History of oral surgery History of right hip replacement (Acute) Status post arthroscopy Family History Brother Age: 71 Diabetes mellitus Heart disease Prostate cancer Father Diabetes mellitus Heart disease Hypertension High cholesterol Alcoholism Parkinsons Social History marital status: household members: spouse lives independently: Yes caregiver/support person: No dustin/yazdanism: [employer] Smoking Status: Never smoker substance use type: does not use Smoking Status: Never smoker Substance Use Type: does not use Exam <BOZENA Purcell - Last Filed: 01/29/19 17:57> Initial Vital Signs Initial Vital Signs: Vital Signs Temperature 98.1 F 01/29/19 16:40 Pulse Rate 76 01/29/19 16:40 Respiratory Rate 18 01/29/19 16:40 Blood Pressure 147/60 H 01/29/19 16:40 Pulse Oximetry 97 12 16:40 PHYSICAL EXAMINATION: GENERAL: Well groomed, alert, and cooperative. Answers questions promptly and appropriately. Vital signs noted. HENT: Normocephalic, atraumatic. Hearing intact. Oral mucosa is pink and moist. EYES: Conjunctiva pink, sclera white, no periorbital swelling. CARDIOVASCULAR: S1 and S2 sounds normal. Regular rate and rhythm, no murmurs, clicks, or bruits. No pedal edema. RESPIRATORY: Normal respiratory rate, trachea midline, airway patent. No stridor, nasal flaring or accessory muscle use. Lungs are clear in all diane without wheeze, rhonchi, or crackles. GASTROINTESTINAL: Bowel sounds normoactive. Abdomen is soft and non-tender, nondistended. No organomegaly, no palpable masses. GENITALURINARY: No flank tenderness. Bladder scan revealed 500 cc of urine. MUSCULOSKELETAL: Normal gait and coordination. Equal tone and mass bilaterally. EXTREMITIES: CMS intact, no pedal edema. SKIN: Warm, dry, soft, appropriate color for ethnicity. No lesions, rashes, or wounds. NEURO: Alert and Oriented X 3. Good coordination. No ataxia, or sensory deficits, or cognitive issues. PSYCH: Appropriate affect and mood. <Nayeli Gibson MD - Last Filed: 01/29/19 18:52> Initial Vital Signs Initial Vital Signs: Vital Signs Temperature 98.1 F 01/29/19 16:40 Pulse Rate 76 01/29/19 16:40 Respiratory Rate 18 01/29/19 16:40 Blood Pressure 147/60 H 01/29/19 16:40 Pulse Oximetry 97 01/29/19 16:40 Course <BOZENA Purcell - Last Filed: 01/29/19 17:57> Course Course Narrative: Bal catheter was placed in the emergency department. Leg bag was gift to patient. Consultations Consultation #1: Patient staffed with Dr. Gibson. Vital Signs Vital signs: Vital Signs - 8 hr 01/29/19 16:40 01/29/19 18:06 Temperature 98.1 F Pulse Rate 76 71 Respiratory Rate 18 16 Blood Pressure 147/60 H 119/57 L Pulse Oximetry 97 96 <Nayeli Gibson MD - Last Filed: 01/29/19 18:52> Vital Signs Vital signs: Vital Signs - 8 hr 01/29/19 16:40 01/29/19 18:06 Temperature 98.1 F Pulse Rate 76 71 Respiratory Rate 18 16 Blood Pressure 147/60 H 119/57 L Pulse Oximetry 97 96 [facility] - Male Genitourinary <BOZENA Purcell - Last Filed: 01/29/19 17:57> Medical Records Attestation: I reviewed the patient's medical records. Lab Data Attestation: I reviewed the patient's lab results. [facility] Narrative Medical decision making narrative: This is a 68-year-old male with a history of BPH and recently diagnosed prostatitis presenting to the emergency department for urinary retention, patient had 500 of cc in urine. After catheter was placed 600 cc of urine were drained. I suspect this is most likely caused by prostatitis it is further complicated with BPH due to recent diagnosis. Less concern for sepsis due to lack of systemic symptoms such as fever, tachycardia, her low blood pressure. Patient was referred to Urology. He was encouraged to call his primary care provider tomorrow to request an additional referral and/or discussed further follow-up as many insurance is do not take ED referrals. Strict return precautions given for new or worsening symptoms. His culture results did not result at this time. Discharge Plan Departure Patient Disposition: Home Clinical Impression: Acute urinary retention Discharge Date/Time: 01/29/19 18:06 Instructions: DI for Urinary Retention in Men Activity Restrictions/Additional Instructions: Thank you for entrusting me with your care today. As discussed, a catheter has been placed in your bladder due to urinary retention. Continue take your antibiotics for prostatitis as directed. I have placed a referral to urologist below, however, I recommend contacting your primary care provider in the morning to discuss placing an additional referral for Urology or discussing other follow-up options as insurance is often require this. Please return emergency department if you develop new or worsening symptoms such as high fevers, uncontrollable vomiting, severe abdominal pain, chest pain, further urinary tension, shortness of breath, or other concerns. Prescriptions: No Action CA PANTOTHENATE/FOLIC ACID/VIT (MULTIVITAMIN) 1 tab PO Q DAY Qty: 0 RF: 0 Fish Oil (#CARDI-OMEGA) 1,000 mg PO Q DAY Qty: 0 RF: 0 CHOLECALCIFEROL (VITAMIN D3) (Vitamin D) 2,000 iu PO Q DAY Qty: 0 RF: 0 ASCORBIC ACID (VITAMIN C) 1,000 mg PO Qty: 0 RF: 0 aspirin 81 MG tablet,delayed release (DR/EC) 81 PO Q DAY Qty: 0 RF: 0 docusate sodium 100 MG capsule 200 PO Q DAY Qty: 0 RF: 0 [fiber tab] Q DAY Qty: 0 RF: 0 varicella-zoster gE-AS01B (PF) [Shingrix (PF)] 50 MCG/0.5 ML suspension for reconstitution 0.5 ml IM X1 Qty: 1 RF: 0 sulfamethoxazole-trimethoprim 800-160 mg tablet 1 tab PO [id number] RF: 0 flecainide 50 mg Tablet 50 mg PO Q12H RF: 0 Pradaxa 150 mg Capsule 150 mg PO BID RF: 0 tamsulosin [Flomax] 0.4 mg capsule 0.4 mg PO DAILY RF: 0 metoprolol succinate 50 mg tablet extended release 24 hr 50 mg PO DAILY RF: 0 rosuvastatin [Crestor] 10 mg tablet 10 mg PO DAILY RF: 0 Referrals: [facility] [Provider Group] (History of BPH, diagnosed with prostatitis on 01/28. Acute urinary retention with catheter placement on 01/29. Evaluate and treat.) Júnior Flores MD [Primary Care Provider] -
--- NOTE | 2019-01-29 18:05 | PC.NURSE ---
placed leg bag of krishna catheter to rt lower leg, pt verbalized understanding of use.
[2019-01-29 18:06] VITALS: BP 119/57; PULSE 71; RESP 16; O2SAT 96
== END 2019-01-29 18:06 | disposition home or self-care (01) ==
PROVIDERS: Emergency Provider Nurse Practitioner; Family Provider Internal Medicine; PCP Internal Medicine
DX: R33.8 Other retention of urine (principal)
CPT/HCPCS: 51701; 51798; 99284

== ENCOUNTER → 2019-02-20 10:55 | Outpatient (CLI) | payer OTHER, SELFPAY ==
[2019-02-20 12:08] LABS: Appearance Urine UA SL CLOUDY; Bilirubin Urine UA NEGATIVE (NEGATIVE); Color Urine UA YELLOW; Glucose Urine UA NEGATIVE (Negative); Ketones Urine UA NEGATIVE (NEGATIVE); Leukocyte Esterase Urine UA 2+ (NEGATIVE); Nitrite Urine UA NEGATIVE (Negative); Occult Blood Urine UA 3+ (Negative); Protein Urine UA 1+ (Negative); Specific Gravity Urine UA >=1.030 (1.000-1.035); Urobilinogen Urine UA 0.2 E.U./dL (0.2)
[2019-02-20 12:16] LABS: Bacteria Urine Many (>30); Culture Indicated Urine Specimen Cultured; RBC Urine 1-5/HPF (0-5/HPF); WBC Urine 30-100/HPF (0-5/HPF)
== END ==
PROVIDERS: PCP Internal Medicine; Visit Provider Physician Assistant
DX: N39.0 Urinary tract infection, site not specified (principal)
CPT/HCPCS: 81001; 87077; 87086; 87186

== ENCOUNTER → 2019-03-05 16:29 | Outpatient (ROUT) | payer OTHER, SELFPAY | PROVIDERS: PCP Internal Medicine; Visit Provider Internal Medicine | DX: R39.9 Unspecified symptoms and signs involving the genitourinary system (principal) | CPT/HCPCS: 87077; 87086; 87185; 87186 ==

== ENCOUNTER → 2019-03-12 07:35 | Outpatient (CLI) | payer OTHER, SELFPAY | PROVIDERS: PCP Internal Medicine; Visit Provider Urology | DX: R33.9 Retention of urine, unspecified (principal); Z96.0 Presence of urogenital implants; N40.0 Benign prostatic hyperplasia without lower urinary tract symptoms; Z87.438 Personal history of other diseases of male genital organs; N35.919 Unspecified urethral stricture, male, unspecified site | CPT/HCPCS: 87086 ==

== ENCOUNTER → 2019-08-04 11:08 | Outpatient (CLI) | payer OTHER, SELFPAY ==
[2019-08-04 13:02] LABS: Appearance Urine UA CLEAR; Bilirubin Urine UA NEGATIVE (NEGATIVE); Color Urine UA YELLOW; Glucose Urine UA TRACE g/dL (Negative); Ketones Urine UA NEGATIVE (NEGATIVE); Leukocyte Esterase Urine UA TRACE (NEGATIVE); Nitrite Urine UA NEGATIVE (Negative); Occult Blood Urine UA NEGATIVE (Negative); Protein Urine UA NEGATIVE (Negative); Specific Gravity Urine UA 1.025 (1.000-1.035); Urobilinogen Urine UA 0.2 E.U./dL (0.2); pH Urine UA 5.5 (4.5-8.0)
[2019-08-04 13:30] LABS: Bacteria Urine Moderate (10-30); Culture Indicated Urine Specimen Cultured; RBC Urine 0-1/HPF (0-5/HPF); WBC Urine 10-30/HPF (0-5/HPF)
== END ==
PROVIDERS: PCP Internal Medicine; Referring Provider Urology; Visit Provider Urology
DX: R39.15 Urgency of urination (principal)
CPT/HCPCS: 36415; 81001; 87077; 87086; 87186

== ENCOUNTER → 2019-09-12 14:14 | Outpatient (CLI) | payer OTHER, SELFPAY ==
[2019-09-12 17:35] LABS: Appearance Urine UA CLOUDY; Bilirubin Urine UA NEGATIVE (NEGATIVE); Color Urine UA YELLOW; Glucose Urine UA NEGATIVE (Negative); Ketones Urine UA NEGATIVE (NEGATIVE); Leukocyte Esterase Urine UA 1+ (NEGATIVE); Nitrite Urine UA NEGATIVE (Negative); Occult Blood Urine UA 3+ (Negative); Protein Urine UA 2+ (Negative); Specific Gravity Urine UA >=1.030 (1.000-1.035); Urobilinogen Urine UA 0.2 E.U./dL (0.2); pH Urine UA 5.5 (4.5-8.0)
[2019-09-12 17:49] LABS: Amorphous Sediment Urine 1+; Bacteria Urine Many (>30); Calcium Oxalate Crystals Urine Few; Culture Indicated Urine Specimen Cultured; Mucus Urine 1+ (Negative); RBC Urine 30-100/HPF (0-5/HPF); Squamous Epithelial Cell Urine 0-1 /HPF (0-5/HPF); WBC Urine 30-100/HPF (0-5/HPF)
== END ==
PROVIDERS: PCP Internal Medicine; Referring Provider Urology; Visit Provider Urology
DX: N39.0 Urinary tract infection, site not specified (principal)
CPT/HCPCS: 81001; 87077; 87086; 87185; 87186

== ENCOUNTER → 2019-12-10 14:57 | Outpatient (ROUT) | payer OTHER, SELFPAY ==
[2019-12-10 15:29] LABS: Aspartate Aminotransferase 44 IU/L (17-59); BUN Creatinine Ratio 29.2 (6-22); Blood Urea Nitrogen 21 mg/dL (9-20); Calcium 8.8 mg/dL (8.4-10.2); Carbon Dioxide 26 mmol/L (22-32); Chloride 105 mmol/L (98-107); Cholesterol 91 mg/dL (140-199); Estimated Glomerular Filt Rate > 60.0 mL/min (>60); Glucose 97 mg/dL (80-110); HDL Cholesterol 42 mg/dL (40-60); HEMOLYSIS < 15 (0-50); LDL Cholesterol Calculated 12 mg/dL (<100); Potassium 4.2 mmol/L (3.4-5.1); Sodium 138 mmol/L (137-145); Triglycerides 185 mg/dL (35-150)
[2019-12-10 15:57] LABS: Prostate Specific Antigen 0.162 ng/mL (0.10-4.00)
== END ==
PROVIDERS: PCP Internal Medicine; Visit Provider Internal Medicine
DX: I48.91 Unspecified atrial fibrillation (principal); E78.2 Mixed hyperlipidemia; N40.0 Benign prostatic hyperplasia without lower urinary tract symptoms
CPT/HCPCS: 80048; 80061; 84153; 84450

== ENCOUNTER → 2020-08-05 08:54 | Outpatient (CLI) | payer OTHER, SELFPAY ==
--- NOTE | 2020-08-05 | DI.RAD.S_ITS ---
PROCEDURE: XR CERVICAL SPINE 2V OR 3V INDICATIONS: osteoarthritis multiplle joints TECHNIQUE: 3 view(s) of the cervical spine were acquired. COMPARISON: None. FINDINGS: Bones: No acute fracture. Straightening of the normal lordotic curvature. Multilevel degenerative endplate sclerosis and spurring. Diffuse facet arthropathy. Moderate narrowing of the C5-C6 and C6-C7 disc spaces. Soft tissues: No prevertebral soft tissue swelling. IMPRESSION: Multilevel spondylosis most pronounced at C5-C6 and C6-C7. Diffuse facet arthropathy Straightening of the normal lordotic curvature. Dictated by: Tito Armenta M.D. on 08/05/2020 at 10:32 Approved by: Tito Armenta M.D. on 08/05/2020 at 10:33
--- NOTE | 2020-08-05 | DI.RAD.S_ITS ---
PROCEDURE: XR HIP W PEL IF DONE LT 2V INDICATIONS: osteoarthritis multiplle joints TECHNIQUE: AP pelvis with lateral view(s) of the left hip(s). COMPARISON: [facility] [place], CR, XR PELVIS WITH BILATERAL LATERAL HIPS, 08/14/2017, 14:29. FINDINGS: Bones: No acute fracture. Expected alignment of right hip arthroplasty. Moderate left hip osteoarthritis. Soft tissues: The visualized bowel gas pattern is normal. No suspicious soft tissue calcifications. IMPRESSION: Moderate left hip osteoarthritis which is grossly unchanged since 08/14/17. Dictated by: Tito Armenta M.D. on 08/05/2020 at 10:38 Approved by: Tito Armenta M.D. on 08/05/2020 at 10:39
== END ==
PROVIDERS: PCP Internal Medicine; Referring Provider Internal Medicine; Visit Provider Internal Medicine
DX: M47.812 Spondylosis without myelopathy or radiculopathy, cervical region (principal); M16.12 Unilateral primary osteoarthritis, left hip
CPT/HCPCS: 72040; 73502

== ENCOUNTER → 2020-11-25 09:41 | Outpatient (CLI) | payer OTHER, SELFPAY ==
[2020-11-25 10:43] LABS: Aspartate Aminotransferase 36 IU/L (17-59); BUN Creatinine Ratio 15.6 (6-22); Blood Urea Nitrogen 15 mg/dL (9-20); Carbon Dioxide 29 mmol/L (22-32); Chloride 103 mmol/L (98-107); Cholesterol 81 mg/dL (140-199); Estimated Glomerular Filt Rate > 60.0 mL/min (>60); Glucose 115 mg/dL (80-110); HDL Cholesterol 36 mg/dL (40-60); HEMOLYSIS < 15 (0-50); LDL Cholesterol Calculated 29 mg/dL (<100); Potassium 4.3 mmol/L (3.4-5.1); Sodium 139 mmol/L (137-145); Triglycerides 81 mg/dL (35-150)
[2020-11-25 11:12] LABS: Prostate Specific Antigen 0.181 ng/mL (0.10-4.00)
== END ==
PROVIDERS: PCP Internal Medicine; Referring Provider Internal Medicine; Visit Provider Internal Medicine
DX: E78.2 Mixed hyperlipidemia (principal); N40.0 Benign prostatic hyperplasia without lower urinary tract symptoms; I48.0 Paroxysmal atrial fibrillation
CPT/HCPCS: 36415; 80048; 80061; 84153; 84450

== ENCOUNTER → 2021-03-10 11:02 | Outpatient (CLI) | payer OTHER, SELFPAY ==
[2021-03-10 12:59] LABS: Appearance Urine UA CLOUDY; Bilirubin Urine UA NEGATIVE (NEGATIVE); Color Urine UA YELLOW; Glucose Urine UA NEGATIVE (Negative); Ketones Urine UA TRACE (NEGATIVE); Leukocyte Esterase Urine UA 3+ (NEGATIVE); Nitrite Urine UA POSITIVE (Negative); Occult Blood Urine UA TRACE-LYSED (Negative); Protein Urine UA TRACE (Negative); Urobilinogen Urine UA 0.2 E.U./dL (0.2)
[2021-03-10 13:37] LABS: RBC Urine 1-5/HPF (0-5/HPF)
[2021-03-10 13:38] LABS: Bacteria Urine Many (>30); Culture Indicated Urine Specimen Cultured; Squamous Epithelial Cell Urine 0-1 /HPF (0-5/HPF); WBC Urine 10-30/HPF (0-5/HPF)
== END ==
PROVIDERS: PCP Internal Medicine; Referring Provider Urology; Visit Provider Urology
DX: N39.0 Urinary tract infection, site not specified (principal)
CPT/HCPCS: 81001; 87077; 87086; 87186

== ENCOUNTER → 2022-07-07 10:40 | Outpatient (CLI) | payer OTHER, SELFPAY ==
[2022-07-07 12:17] LABS: Hematocrit 41.6 % (41-53); Mean Corpuscular HGB Conc 36.1 % (30-36); Mean Corpuscular Hemoglobin 34.8 PG (26-34); Mean Corpuscular Volume 96.3 fL (80-100); Platelet Count 184 X10^3/uL (150-400); Red Blood Cell Count 4.32 X10^6/uL (4.5-5.9); Red Cell Distribution Width 12.8 % (11.6-14.8); White Blood Cell Count 6.5 X10^3/uL (4.5-11.0)
[2022-07-07 12:29] LABS: Alanine Aminotransferase 28 IU/L (<50); Albumin 4.3 g/dL (3.5-5.0); Albumin Globulin Ratio 1.6 (1.0-2.8); Alkaline Phosphatase 81 U/L (38-126); Aspartate Aminotransferase 37 IU/L (17-59); BUN Creatinine Ratio 18.3 (6-22); Bilirubin Total 1.1 mg/dL (0.2-1.3); Blood Urea Nitrogen 17 mg/dL (9-20); Carbon Dioxide 29 mmol/L (22-32); Chloride 104 mmol/L (98-107); Cholesterol 109 mg/dL (140-199); Estimated Glomerular Filt Rate > 60 mL/min (>60); Globulin 2.7 g/dL (1.7-4.1); Glucose 117 mg/dL (80-110); HDL Cholesterol 42 mg/dL (40-60); HEMOLYSIS < 15 (0-50); LDL Cholesterol Calculated 47 mg/dL (<100); Potassium 4.5 mmol/L (3.4-5.1); Sodium 139 mmol/L (137-145); Triglycerides 102 mg/dL (35-150)
[2022-07-07 12:57] LABS: Prostate Specific Antigen 0.183 ng/mL (0.10-4.00)
[2022-07-07 13:04] LABS: TSH w/ Reflex to FT4 0.96 uIU/mL (0.47-4.68)
[2022-07-08 06:02] LABS: x Labcorp Estim. Avg Glu (eAG) 123 mg/dL (.); x Labcorp Hemoglobin A1c 5.9 % (4.8-5.6)
== END ==
PROVIDERS: PCP Internal Medicine; Referring Provider Internal Medicine; Visit Provider Internal Medicine
DX: E78.2 Mixed hyperlipidemia (principal); N40.1 Benign prostatic hyperplasia with lower urinary tract symptoms; I48.0 Paroxysmal atrial fibrillation; N13.8 Other obstructive and reflux uropathy
CPT/HCPCS: 36415; 80053; 80061; 83036; 84153; 84443; 85027

== ENCOUNTER 2022-11-22 19:12 | Emergency (ER) | payer OTHER, SELFPAY ==
[2022-11-22] VITALS (8 sets, daily range): BP systolic 116–162; BP diastolic 56–88; PULSE 59–73; RESP 16–24; TEMP 36.8; O2SAT 93–98; BMI 29.8
--- NOTE | 2022-11-22 19:27 | DI.RAD.S_ITS ---
PROCEDURE: XR CHEST 1V INDICATIONS: chest pain TECHNIQUE: One view of the chest was acquired. COMPARISON: [facility], CR, XR CHEST 1V, 07/02/2017, 21:05. FINDINGS: Surgical changes and devices: None. Lungs and pleura: Lungs are clear. No pleural effusions or pneumothorax. Mediastinum: Mediastinal contours appear normal. Heart size is normal. Bones and chest wall: No suspicious bony lesions. Overlying soft tissues appear unremarkable. IMPRESSION: No acute cardiopulmonary abnormality. Dictated by: Federico Gimenez M.D. on 11/22/2022 at 20:22 Approved by: Federico Gimenez M.D. on 11/22/2022 at 20:23
[2022-11-22 19:41] LABS: INR 1.1 (0.9-1.3); Prothrombin Time 12.2 SECONDS (10.1-12.7)
[2022-11-22 19:43] LABS: PTT Partial Thromboplastin Tim 30 SECONDS (26-36)
[2022-11-22 19:46] LABS: Alanine Aminotransferase 25 IU/L (<50); Albumin 4.6 g/dL (3.5-5.0); Albumin Globulin Ratio 1.5 (1.0-2.8); Alkaline Phosphatase 70 U/L (38-126); Aspartate Aminotransferase 35 IU/L (17-59); BUN Creatinine Ratio 19.5 (6-22); Bilirubin Total 0.7 mg/dL (0.2-1.3); Blood Urea Nitrogen 23 mg/dL (9-20); Calcium 9.3 mg/dL (8.4-10.2); Carbon Dioxide 24 mmol/L (22-32); Chloride 103 mmol/L (98-107); Creatine Kinase 352 U/L (55-170); Estimated Glomerular Filt Rate > 60 mL/min (>60); Glucose 134 mg/dL (80-110); HEMOLYSIS < 15 (0-50); Lipase 82 U/L (23-300); Magnesium 2.1 mg/dL (1.6-2.3); Potassium 4.2 mmol/L (3.4-5.1); Sodium 137 mmol/L (137-145); Total Protein 7.6 g/dL (6.3-8.2)
[2022-11-22 19:52] LABS: Add Manual Diff / Slide Review NO; Basophils Absolute Auto 100 /uL (0-100); Basophils Percent Auto 0.6 % (0-2); Eosinophils Absolute Auto 200 /uL (0-450); Eosinophils Percent Auto 2.1 % (2-4); Hematocrit 44.2 % (41-53); Hemoglobin 15.7 g/dL (13.5-17.5); Lymphocytes Absolute Auto 2900 /uL (1100-4500); Lymphocytes Percent Auto 26.6 % (25-40); Mean Corpuscular HGB Conc 35.4 % (30-36); Mean Corpuscular Hemoglobin 34.5 PG (26-34); Mean Corpuscular Volume 97.4 fL (80-100); Monocytes Absolute Auto 800 /uL (0-900); Monocytes Percent Auto 7.6 % (3-14); Neutrophils Absolute Auto 7000 /uL (1500-7000); Neutrophils Percent Auto 63.1 % (50-75); Platelet Count 215 X10^3/uL (150-400); Red Blood Cell Count 4.54 X10^6/uL (4.5-5.9); Red Cell Distribution Width 12.6 % (11.6-14.8); White Blood Cell Count 11.1 X10^3/uL (4.5-11.0)
[2022-11-22 19:56] LABS: Troponin I < 0.012 ng/mL (0.01-0.034)
--- NOTE | 2022-11-22 21:46 | ED.ARRPALP ---
HPI - Arrhythmia/Palpitations General Chief Complaint: Arrhythmia/Palpitations Stated Complaint: AFIB Time Seen by Provider: 11/22/22 21:05 Source: patient Mode of arrival: Ambulatory Limitations: no limitations History of Present Illness HPI narrative: This is a 72-year-old male with history of atrial fibrillation ablation approximately 10 years ago on aspirin 325, flecainide 50 mg twice daily, metoprolol succinate 12.5 mg nightly, rosuvastatin 5 mg daily, finasteride. Patient presents with complaint of palpitations starting last night, patient states was about 11 30 in the evening, he normally takes his flecainide twice daily he took an extra dose of flecainide in the evening, he would persistent symptoms this morning so took his normal dose an additional dose of flecainide as well as 25 mg of metoprolol. Patient states he is continued to have some symptoms you could feel palpitations no chest pain or pressure, felt a little under the weather but no syncope. No shortness of breath, no diaphoresis. No nausea or vomiting, no issues with bowel movements or diarrhea constipation, no urinary symptoms. No swelling in extremities. Patient presented and state he felt that he flipped back into a sinus rhythm after arrival here. Patient notes he would an ablation approximately [address] Novak, he is not required any interventions otherwise. He has not had any stents. About 5 years after his ablation started having paroxysmal episodes. He is noted 3 episodes total this month which is more frequent than typical. Patient states he has self cardioverted each time. He notes he is on 05/01 5 mg of aspirin but will be upgraded back to Eliquis when he turns 73. Follow[address] with [address]. Flores is his primary care. He follows with Dr. Koroma/Dr. Novak at [facility]. Patient states he is currently asymptomatic. Related Data Home Medications Medication Instructions Recorded Confirmed docusate sodium 100 mg capsule 200 PO Q DAY ##0 05/01/16 07/07/22 flecainide 50 mg tablet 50 mg PO Q12H 01/29/19 07/07/22 ascorbic acid (vitamin C) 1,000 mg 1,000 mg PO DAILY 07/06/21 07/07/22 tablet aspirin 325 mg tablet,delayed 325 mg PO DAILY 07/06/21 07/07/22 release cholecalciferol (vitamin D3) 50 50 mcg PO DAILY 07/06/21 07/07/22 mcg (2,000 unit) capsule multivitamin 1 tab PO DAILY 07/06/21 07/07/22 omega-3 fatty acids 1,000 mg 1,000 mg PO DAILY 07/06/21 07/07/22 capsule Previous Rx's Medication Instructions Recorded finasteride 5 mg tablet 5 mg PO DAILY #90 tabs 07/07/22 metoprolol succinate 25 mg 12.5 mg (1/2 x 25 mg) PO DAILY 07/07/22 tablet,extended release 24 hr Atrial Fib #45 tabs rosuvastatin 5 mg tablet 5 mg PO DAILY #90 tabs 07/07/22 Allergies Allergy/AdvReac Type Severity Reaction Status Date / Time No Known Drug Allergies Allergy Verified 11/22/22 21:02 Review of Systems Review of Systems ROS Unobtainable: All systems reviewed & are unremarkable except as noted in HPI and below Patient History Medical History Impaired fasting glucose BPH w urinary obs/LUTS Mixed hyperlipidemia Paroxysmal atrial fibrillation Osteoarthritis of left knee Tricuspid valve regurgitation Closed L5 vertebral fracture ADD (attention deficit disorder) without hyperactivity (09/22/11) History of cardioversion Surgical History History of hemorrhoidectomy Biceps tendon rupture History of vasectomy H/O cardiac radiofrequency ablation History of right hip replacement (~07/2012) History of oral surgery Status post arthroscopy History of cataract removal with insertion of prosthetic lens Family History Brother Age: 75 Diabetes mellitus Heart disease Prostate cancer Father Diabetes mellitus Heart disease Hypertension High cholesterol Alcoholism Parkinsons Social History marital status: (to Miriam) details: lives in [place] household members: spouse lives independently: Yes caregiver/support person: No housing: house education level: master's degree occupational status: other (retired) 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 HEENT: Head normocephalic, atraumatic, EOMI, pupils reactive, face symmetric, moist mucous membranes NECK: Supple, full range of motion CARDIOVASCULAR: Regular rate and rhythm without murmurs, rubs or gallops. No JVD. No swelling bilateral lower extremities. RESPIRATORY: Breath sounds equal bilaterally, no wheezes rales or rhonchi. No tachypnea, no accessory muscle use. ABDOMEN: Soft, nontender. Normoactive bowel sounds all 4 quadrants. No guarding or rebound, rigidity, no mass : No CVA tenderness EXTREMITIES: Normal range of motion, no clubbing or edema. Neurovascularly intact NEUROLOGICAL: Cranial nerves II through XII grossly intact. Moving all extremities SKIN: Warm, dry, no petechiae, no rashes or lesions. Initial Vital Signs Initial Vital Signs: Vital Signs Temperature 98.3 F 11/22/22 19:14 Pulse Rate 73 11/22/22 19:14 Respiratory Rate 16 11/22/22 19:14 Blood Pressure 162/88 H 11/22/22 19:14 Pulse Oximetry 98 11/22/22 19:14 Oxygen Delivery Method Room Air 11/22/22 19:14 Course Orders Ordered: ED Orders 11/22/22 19:26 Complete Blood Count AUTO DIFF Stat Comprehensive Metabolic Panel Stat Lipase Stat Magnesium Stat PTT Partial Thromboplastin Karlos Stat Prothrombin Time INR Stat Troponin & CK Cardiac Panel Stat 11/22/22 19:27 XR chest 1V Stat EKG-12 Lead Stat Vital Signs Vital signs: Vital Signs - 8 hr 11/22/22 20:00 11/22/22 20:00 11/22/22 20:30 Pulse Rate 67 Respiratory Rate 23 Blood Pressure 121/68 116/59 L Pulse Oximetry 93 Oxygen Delivery Method Room Air 11/22/22 20:30 11/22/22 21:00 11/22/22 21:00 Pulse Rate 61 59 L Respiratory Rate 18 19 Blood Pressure 116/56 L Pulse Oximetry 94 93 Oxygen Delivery Method Room Air Room Air 11/22/22 21:30 11/22/22 21:30 11/22/22 22:00 Pulse Rate 61 60 Respiratory Rate 24 20 Blood Pressure 121/62 Pulse Oximetry 95 97 Oxygen Delivery Method Room Air Room Air MDM - Arrhythmia/Palpitations Lab Data 11/22/22 19:26 11/22/22 19:26 Labs: Lab Results 11/22/22 Range/Units 19:26 WBC 11.1 H (4.5-11.0) X10^3/uL RBC 4.54 (4.5-5.9) X10^6/uL Hgb 15.7 (13.5-17.5) g/dL Hct 44.2 (41-53) % MCV 97.4 (80-100) fL MCH 34.5 H (26-34) PG MCHC 35.4 (30-36) % RDW 12.6 (11.6-14.8) % Plt Count 215 (150-400) X10^3/uL Neut % (Auto) 63.1 (50-75) % Lymph % (Auto) 26.6 (25-40) % [place] % (Auto) 7.6 (3-14) % Eos % (Auto) 2.1 (2-4) % Baso % (Auto) 0.6 (0-2) % Neut # (Auto) 7000 (6743-0515) /uL Lymph # (Auto) 2900 (1128-7501) /uL [place] # (Auto) 800 (0-900) /uL Eos # (Auto) 200 (0-450) /uL Baso # (Auto) 100 (0-100) /uL PT 12.2 (10.1-12.7) SECONDS INR 1.1 (0.9-1.3) APTT 30 (26-36) SECONDS Sodium 137 (137-145) mmol/L Potassium 4.2 (3.4-5.1) mmol/L Chloride 103 (98-107) mmol/L Carbon Dioxide 24 (22-32) mmol/L BUN 23 H (9-20) mg/dL Creatinine 1.18 (0.66-1.25) mg/dL Estimated GFR > 60 (>60) mL/min BUN/Creatinine Ratio 19.5 (6-22) Glucose 134 H (80-110) mg/dL Calcium 9.3 (8.4-10.2) mg/dL Magnesium 2.1 (1.6-2.3) mg/dL Total Bilirubin 0.7 (0.2-1.3) mg/dL AST 35 (17-59) IU/L ALT 25 (<50) IU/L Alkaline Phosphatase 70 (38-126) U/L Total Creatine Kinase 352 H (55-170) U/L Troponin I < 0.012 (0.01-0.034) ng/mL Total Protein 7.6 (6.3-8.2) g/dL Albumin 4.6 (3.5-5.0) g/dL Globulin 3.0 (1.7-4.1) g/dL Albumin/Globulin Ratio 1.5 (1.0-2.8) Lipase 82 (23-300) U/L Imaging Data Chest x-ray: Radiologist's Impresson: [address] [address] XRay Report Signed Patient: Sergio Harris MR#: [id number] : 1950 Acct:[id number] Age/Sex: 72 / M Date of Service: 11/22/22 Loc: ED Accession Number: [id number] Procedure: XR chest 1V Ordering Provider: Archana Oliveira D.O. PROCEDURE: XR CHEST 1V INDICATIONS: chest pain TECHNIQUE: One view of the chest was acquired. COMPARISON: [facility], , XR CHEST 1V, 07/02/2017, 21:05. FINDINGS: Surgical changes and devices: None. Lungs and pleura: Lungs are clear. No pleural effusions or pneumothorax. Mediastinum: Mediastinal contours appear normal. Heart size is normal. Bones and chest wall: No suspicious bony lesions. Overlying soft tissues appear unremarkable. IMPRESSION: No acute cardiopulmonary abnormality. Dictated by: Federico Gimenez M.D. on 11/22/2022 at 20:22 Approved by: Federico Gimenez M.D. on 11/22/2022 at 20:23 ECG Data Attestation: I personally reviewed and interpreted this ECG as follows: Prior ECG tracings: available for review Interpretation: Sinus rhythm rate of 70 NH 190 QRS of [address]TC [address] acute [address] elevation. Some nonspecific change. Patient has prior from 07/03/2017. [facility] Narrative Medical decision making narrative: 72-year-old male with known paroxysmal atrial fibrillation currently anticoagulated aspirin 325 based on his CHADS-Vasc score. Patient states he was actually downgraded from Eliquis in the past and will be upgraded once he turns 73 and his score changes again. He started have an episode of atrial fibrillation he can feel it last night he took an extra dose of flecainide in the evening, took an additional dose in the morning as well as extra metoprolol on top of his normal dosage. He feels that he cardioverted round arrival here this evening and was found to be in sinus rhythm here in the department. Labs Show appropriate hemoglobin, white count 11 platelets of 215 potassium is 4.2 BUN 23 creatinine 1.18, glucose 134 CK is 352 with negative troponin. TSH was appropriate on last check. Chest x-ray shows no acute change EKG does not have significant ST segment changes. Patient states more palpitations symptoms no chest pain or shortness of breath and felt appropriate for discharge home. He prefers to reach out to his cardiology team rather than having myself do it see if they would like to adjust his medications. All questions answered, discussed return precautions. Discharge Plan Departure Patient Disposition: Home Clinical Impression: Paroxysmal atrial fibrillation Instructions: DI for Atrial Fibrillation Activity Restrictions/Additional Instructions: Follow-up with your cardiology team, as discussed touch base to see if they want to adjust your medications. Please return if you have new or recurrent symptoms persistent palpitations, irregular heartbeat, new chest pain, shortness of breath, lightheadedness or passing out, swelling in her extremities, diaphoresis or sweatiness or other new or concerning changes. Prescriptions: No Action docusate sodium 100 MG capsule 200 PO Q DAY Qty: 0 aspirin 325 mg tablet,delayed release (DR/EC) 325 mg PO DAILY cholecalciferol (vitamin D3) 50 mcg (2,000 unit) capsule 50 mcg PO DAILY ascorbic acid (vitamin C) 1,000 mg tablet 1,000 mg PO DAILY omega-3 fatty acids 1,000 mg capsule 1,000 mg PO DAILY multivitamin Tablet 1 tab PO DAILY finasteride 5 mg tablet 5 mg PO DAILY Qty: 90 3RF rosuvastatin 5 mg tablet 5 mg PO DAILY Qty: 90 3RF metoprolol succinate 25 mg tablet extended release 24 hr 12.5 mg PO DAILY Qty: 45 3RF flecainide 50 mg Tablet 50 mg PO Q12H Referrals: Samuel Novak MD [Physician] - Júnior Flores MD [Primary Care Provider] - Stand Alone Forms: Patient Portal/API
== END 2022-11-22 22:20 | disposition home or self-care (01) ==
PROVIDERS: Emergency Provider Emergency Medicine; PCP Internal Medicine
DX: I48.0 Paroxysmal atrial fibrillation (principal); R07.9 Chest pain, unspecified; Z79.899 Other long term (current) drug therapy; Z79.01 Long term (current) use of anticoagulants
CPT/HCPCS: 36415; 71045; 80053; 82550; 83690; 83735; 84484; 85025; 85610; 85730; 93005; 99283; 99284

== ENCOUNTER 2022-12-24 17:26 | Emergency (ER) | payer OTHER, SELFPAY ==
[2022-12-24] VITALS (8 sets, daily range): BP systolic 128–143; BP diastolic 80–87; PULSE 80–93; RESP 13–28; TEMP 37.1; O2SAT 91–97; BMI 29.5
--- NOTE | 2022-12-24 17:38 | DI.RAD.S_ITS ---
PROCEDURE: XR CHEST 1V INDICATIONS: chest pain TECHNIQUE: One view of the chest was acquired. COMPARISON: [facility], , XR CHEST 1V, 11/22/2022, 19:29. FINDINGS: Surgical changes and devices: None. Lungs and pleura: Lungs are clear. No pleural effusions or pneumothorax. Mediastinum: Mediastinal contours appear normal. Heart size is normal. Bones and chest wall: No suspicious bony lesions. Overlying soft tissues appear unremarkable. IMPRESSION: Portable chest within normal limits for age. Approved by: Danny Gordillo M.D. on 12/24/2022 at 17:49
[2022-12-24 17:55] LABS: Add Manual Diff / Slide Review NO; Basophils Absolute Auto 100 /uL (0-100); Basophils Percent Auto 0.6 % (0-2); Eosinophils Absolute Auto 300 /uL (0-450); Eosinophils Percent Auto 2.6 % (2-4); Hematocrit 42.5 % (41-53); Hemoglobin 15.3 g/dL (13.5-17.5); Lymphocytes Absolute Auto 2700 /uL (1100-4500); Lymphocytes Percent Auto 25.3 % (25-40); Mean Corpuscular HGB Conc 36.1 % (30-36); Mean Corpuscular Hemoglobin 35.2 PG (26-34); Mean Corpuscular Volume 97.4 fL (80-100); Monocytes Absolute Auto 1200 /uL (0-900); Monocytes Percent Auto 10.8 % (3-14); Neutrophils Absolute Auto 6500 /uL (1500-7000); Neutrophils Percent Auto 60.7 % (50-75); Platelet Count 213 X10^3/uL (150-400); Red Blood Cell Count 4.36 X10^6/uL (4.5-5.9); Red Cell Distribution Width 12.4 % (11.6-14.8); White Blood Cell Count 10.7 X10^3/uL (4.5-11.0)
--- NOTE | 2022-12-24 18:04 | PC.NURSE ---
Patient takes Aspirin 325mg daily and has already taken today. Provider informed and medication not given in MAR.
[2022-12-24 18:07] LABS: Alanine Aminotransferase 24 IU/L (<50); Albumin 4.3 g/dL (3.5-5.0); Albumin Globulin Ratio 1.4 (1.0-2.8); Alkaline Phosphatase 73 U/L (38-126); Aspartate Aminotransferase 30 IU/L (17-59); BUN Creatinine Ratio 19.3 (6-22); Bilirubin Total 0.7 mg/dL (0.2-1.3); Blood Urea Nitrogen 16 mg/dL (9-20); Carbon Dioxide 24 mmol/L (22-32); Chloride 102 mmol/L (98-107); Creatine Kinase 198 U/L (55-170); Estimated Glomerular Filt Rate > 60 mL/min (>60); Globulin 3.1 g/dL (1.7-4.1); Glucose 100 mg/dL (80-110); HEMOLYSIS 29 (0-50); Lipase 63 U/L (23-300); Magnesium 2.1 mg/dL (1.6-2.3); Potassium 4.1 mmol/L (3.4-5.1); Sodium 135 mmol/L (137-145); Total Protein 7.4 g/dL (6.3-8.2)
[2022-12-24 18:11] LABS: INR 1.1 (0.9-1.3); Prothrombin Time 12.4 SECONDS (10.1-12.7)
[2022-12-24 18:14] LABS: PTT Partial Thromboplastin Tim 29 SECONDS (26-36)
[2022-12-24 18:19] LABS: Troponin I < 0.012 ng/mL (0.01-0.034)
[2022-12-24 18:22] LABS: Lipase 65 U/L (23-300)
[2022-12-24 19:09] LABS: Thyroid Stimulating Hormone 1.35 uIU/mL (0.47-4.68)
--- NOTE | 2022-12-24 22:09 | ED.ARRPALP ---
HPI - Arrhythmia/Palpitations General Chief Complaint: Arrhythmia/Palpitations Stated Complaint: Afib acting out on me T-2 Time Seen by Provider: 12/24/22 17:48 Source: patient Mode of arrival: Ambulatory History of Present Illness HPI narrative: 72-year-old man with a history of paroxysmal atrial fibrillation status post ablation with recurrent paroxysmal atrial fibrillation after that, had been cardioverted several times not presently anticoagulated followed by Dr. Samuel Novak at scheduled for cardiology. He is taking flecainide, it was recently titrated up 100 b.i.d. also taking metoprolol 12.5 b.i.d. reportedly CHADS2 Vasc score has been 0 and on aspirin 325 daily for stroke prophylaxis. Has been on Eliquis previously. He is not having chest pain or shortness of breath. He is not having syncope although turn be feels a little lightheaded. He is in atrial fibrillation today, yesterday his rates were 117 max and typically at about 110. It is a bit slower today. He says that he noted onset of his atrial fibrillation in this episode 2 days ago. Additionally he has had several episodes that lasted 24 hours or less recently. Related Data Home Medications Medication Instructions Recorded Confirmed docusate sodium 100 mg capsule 200 PO Q DAY ##0 05/01/16 07/07/22 flecainide 50 mg tablet 50 mg PO Q12H 01/29/19 07/07/22 ascorbic acid (vitamin C) 1,000 mg 1,000 mg PO DAILY 07/06/21 07/07/22 tablet aspirin 325 mg tablet,delayed 325 mg PO DAILY 07/06/21 07/07/22 release cholecalciferol (vitamin D3) 50 50 mcg PO DAILY 07/06/21 07/07/22 mcg (2,000 unit) capsule multivitamin 1 tab PO DAILY 07/06/21 07/07/22 omega-3 fatty acids 1,000 mg 1,000 mg PO DAILY 07/06/21 07/07/22 capsule Previous Rx's Medication Instructions Recorded finasteride 5 mg tablet 5 mg PO DAILY #90 tabs 07/07/22 metoprolol succinate 25 mg 12.5 mg (1/2 x 25 mg) PO DAILY 07/07/22 tablet,extended release 24 hr Atrial Fib #45 tabs rosuvastatin 5 mg tablet 5 mg PO DAILY #90 tabs 07/07/22 Allergies Allergy/AdvReac Type Severity Reaction Status Date / Time No Known Drug Allergies Allergy Verified 12/24/22 17:36 Patient History Medical History Impaired fasting glucose BPH w urinary obs/LUTS Mixed hyperlipidemia Paroxysmal atrial fibrillation Osteoarthritis of left knee Tricuspid valve regurgitation Closed L5 vertebral fracture ADD (attention deficit disorder) without hyperactivity (09/22/11) History of cardioversion Surgical History History of hemorrhoidectomy Biceps tendon rupture History of vasectomy H/O cardiac radiofrequency ablation History of right hip replacement (~07/2012) History of oral surgery Status post arthroscopy History of cataract removal with insertion of prosthetic lens Family History Brother Age: 75 Diabetes mellitus Heart disease Prostate cancer Father Diabetes mellitus Heart disease Hypertension High cholesterol Alcoholism Parkinsons Social History marital status: (to Miriam) details: lives in [place] household members: spouse lives independently: Yes caregiver/support person: No housing: house education level: master's degree occupational status: other (retired) 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, 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: [employer] Smoking Status: Former smoker substance use type: does not use Smoking Status: Former smoker alcohol intake frequency: a few times a week Alcohol type: beer and hard liquor Substance Use Type: does not use Exam Initial Vital Signs Initial Vital Signs: Vital Signs Temperature 98.7 F 12/24/22 17:31 Pulse Rate 91 H 12/24/22 17:31 Respiratory Rate 20 12/24/22 17:31 Blood Pressure 142/82 H 12/24/22 17:31 Pulse Oximetry 96 12/24/22 17:31 Oxygen Delivery Method Room Air 12/24/22 17:31 Const General: cooperative and No acute distress Neck Neck: normal visual inspection, supple and No JVD Resp Effort & Inspection: normal respiratory effort and abnormal respiratory pattern Auscultation: clear to auscultation bilaterally Cardio Other: Irregularly irregular no murmur or gallop, rate is controlled Neuro General: patient alert, patient oriented x3 and moves all extremities Cranial Nerves: CN's II-XI intact bilaterally Cognition: normal cognition Speech: speech normal Course Orders Ordered: ED Orders 12/24/22 17:38 XR chest 1V Stat 12/24/22 17:48 Complete Blood Count AUTO DIFF Stat Comprehensive Metabolic Panel Stat Lipase Stat Lipase Stat Magnesium Stat PTT Partial Thromboplastin Karlos Stat Prothrombin Time INR Stat TSH [Thyroid Stimulating Hormone] Stat Troponin & CK Cardiac Panel Stat 12/24/22 17:51 EKG-12 Lead Stat Discontinued Medications Aspirin (Aspirin 81 Mg Chew Tab) 324 mg PO NOW ONE Stop: 12/24/22 17:39 Last Admin: 12/24/22 18:03 Dose: Not Given Documented By: RB Vital Signs Vital signs: Vital Signs - 8 hr 12/24/22 17:31 12/24/22 17:42 12/24/22 17:57 Temperature 98.7 F Pulse Rate 91 H 90 88 Respiratory Rate 20 28 H 22 Blood Pressure 142/82 H Pulse Oximetry 96 96 Oxygen Delivery Method Room Air 12/24/22 17:57 12/24/22 17:59 12/24/22 18:00 Temperature Pulse Rate 92 H Respiratory Rate 24 Blood Pressure 128/82 137/87 Pulse Oximetry 97 Oxygen Delivery Method 12/24/22 18:00 12/24/22 18:30 12/24/22 18:30 Temperature Pulse Rate 87 93 H Respiratory Rate 17 22 Blood Pressure 143/80 H Pulse Oximetry 96 91 Oxygen Delivery Method 12/24/22 19:00 12/24/22 19:01 12/24/22 19:01 Temperature Pulse Rate 87 80 Respiratory Rate 23 13 Blood Pressure 129/80 Pulse Oximetry 94 94 Oxygen Delivery Method MDM - Arrhythmia/Palpitations Lab Data Lab results narrative: CBC, CMP, magnesium coags all without significant abnormality 12/24/22 17:48 12/24/22 17:48 Labs: Lab Results 12/24/22 12/24/22 Range/Units 17:48 17:48 WBC 10.7 (4.5-11.0) X10^3/uL RBC 4.36 L (4.5-5.9) X10^6/uL Hgb 15.3 (13.5-17.5) g/dL Hct 42.5 (41-53) % MCV 97.4 (80-100) fL MCH 35.2 H (26-34) PG MCHC 36.1 H (30-36) % RDW 12.4 (11.6-14.8) % Plt Count 213 (150-400) X10^3/uL Neut % (Auto) 60.7 (50-75) % Lymph % (Auto) 25.3 (25-40) % [place] % (Auto) 10.8 (3-14) % Eos % (Auto) 2.6 (2-4) % Baso % (Auto) 0.6 (0-2) % Neut # (Auto) 6500 (8498-8677) /uL Lymph # (Auto) 2700 (8516-6959) /uL [place] # (Auto) 1200 H (0-900) /uL Eos # (Auto) 300 (0-450) /uL Baso # (Auto) 100 (0-100) /uL PT 12.4 (10.1-12.7) SECONDS INR 1.1 (0.9-1.3) APTT 29 (26-36) SECONDS Sodium 135 L (137-145) mmol/L Potassium 4.1 (3.4-5.1) mmol/L Chloride 102 (98-107) mmol/L Carbon Dioxide 24 (22-32) mmol/L BUN 16 (9-20) mg/dL Creatinine 0.83 (0.66-1.25) mg/dL Estimated GFR > 60 (>60) mL/min BUN/Creatinine Ratio 19.3 (6-22) Glucose 100 (80-110) mg/dL Calcium 9.0 (8.4-10.2) mg/dL Magnesium 2.1 (1.6-2.3) mg/dL Total Bilirubin 0.7 (0.2-1.3) mg/dL AST 30 (17-59) IU/L ALT 24 (<50) IU/L Alkaline Phosphatase 73 (38-126) U/L Total Creatine Kinase 198 H (55-170) U/L Troponin I < 0.012 (0.01-0.034) ng/mL Total Protein 7.4 (6.3-8.2) g/dL Albumin 4.3 (3.5-5.0) g/dL Globulin 3.1 (1.7-4.1) g/dL Albumin/Globulin Ratio 1.4 (1.0-2.8) Lipase 63 65 (23-300) U/L TSH 1.35 (0.47-4.68) uIU/mL Imaging Data Chest x-ray: My Impression: Independently reviewed portable chest x-ray no acute disease ECG Data Interpretation: EKG showed atrial fibrillation with a ventricular rate of 96. Normal axis no acute ST segment changes MDM Narrative Medical decision making narrative: 72-year-old man with a history of paroxysmal atrial fibrillation presenting with 48 hours of atrial fibrillation. He is not anticoagulated and he is rate controlled, cardioversion tonight if not indicated. Given his extensive history of paroxysmal atrial fibrillation as well as his overall stable appearance on presentation and lack of acute symptoms other than atrial fibrillation I do not think that investigation for coronary disease pulmonary embolism infection etc. is indicated tonight. Because he is recently be coming in and out of atrial fibrillation frequently and because it is possible that a cardioversion will be contemplated in the near future I have started him back on Eliquis which he already has. If necessary, he may up titrate his metoprolol a little bit from 12.5-25 daily. I recommended she follow up with Cardiology as soon as possible for a recheck and consideration of cardioversion. Discharge Plan Departure Patient Disposition: Home Clinical Impression: Paroxysmal atrial fibrillation Activity Restrictions/Additional Instructions: Continue your previous home medications and restart your Eliquis. If you find that your heart rate is consistently above 110, increase your metoprolol to 25 mg in the morning. If you are having chest pain shortness of breath or fainting return to the emergency department. Call to follow up with your trade embalmer as soon as possible. Prescriptions: No Action docusate sodium 100 MG capsule 200 PO Q DAY Qty: 0 aspirin 325 mg tablet,delayed release (DR/EC) 325 mg PO DAILY cholecalciferol (vitamin D3) 50 mcg (2,000 unit) capsule 50 mcg PO DAILY ascorbic acid (vitamin C) 1,000 mg tablet 1,000 mg PO DAILY omega-3 fatty acids 1,000 mg capsule 1,000 mg PO DAILY multivitamin Tablet 1 tab PO DAILY finasteride 5 mg tablet 5 mg PO DAILY Qty: 90 3RF rosuvastatin 5 mg tablet 5 mg PO DAILY Qty: 90 3RF metoprolol succinate 25 mg tablet extended release 24 hr 12.5 mg PO DAILY Qty: 45 3RF flecainide 50 mg Tablet 50 mg PO Q12H Referrals: Samuel Novak MD [Physician] - As soon as possible Stand Alone Forms: Patient Portal/API
== END 2022-12-24 19:20 | disposition home or self-care (01) ==
PROVIDERS: Emergency Medicine; Emergency Provider Emergency Medicine; PCP Internal Medicine
DX: I48.0 Paroxysmal atrial fibrillation (principal); Z79.01 Long term (current) use of anticoagulants
CPT/HCPCS: 36415; 71045; 80053; 82550; 83690; 83735; 84443; 84484; 85025; 85610; 85730; 93005; 93010; 99283; 99284

== ENCOUNTER 2023-01-01 09:20 | Emergency (ER) | payer OTHER, SELFPAY ==
[2023-01-01] VITALS (9 sets, daily range): BP systolic 117–159; BP diastolic 72–97; PULSE 99–118; RESP 16–31; TEMP 36.6; O2SAT 92–98
--- NOTE | 2023-01-01 09:33 | ED_ITS ---
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 Patient is seen here December 24 for the same. Patient was only on baby aspirin daily. He has a low chads score. However he was restarted on Eliquis 8 days ago. Currently on flecainide 100 mg twice a day and metoprolol 25 mg daily. On Eliquis 5 mg twice a day. He did take these medications this morning. He is to see Dr. Novak, with [facility] cardiology, for EDSON and possible cardioversion. He was seen in the office August 2022 with cardiology. At that time his cardiology team had him on flecainide 50 mg twice a day and metoprolol 12.5 mg daily. Denies any chest pain. Does have dizziness and palpitations. No shortness of breath. No numbness tingling or weakness. Fast exam is negative. He states last week his heart rate did go down to 60. No cardioversion done at the time because he was not anticoagulated and in addition his rate was controlled. Related Data Home Medications Medication Instructions Recorded Confirmed docusate sodium 100 mg capsule 200 PO Q DAY ##0 05/01/16 12/28/22 ascorbic acid (vitamin C) 1,000 mg 1,000 mg PO DAILY 07/06/21 12/28/22 tablet cholecalciferol (vitamin D3) 50 50 mcg PO DAILY 07/06/21 12/28/22 mcg (2,000 unit) capsule multivitamin 1 tab PO DAILY 07/06/21 12/28/22 omega-3 fatty acids 1,000 mg 1,000 mg PO DAILY 07/06/21 12/28/22 capsule apixaban 5 mg tablet 5 mg PO BID 12/28/22 01/01/23 flecainide 50 mg tablet 100 mg PO Q12H 12/28/22 01/01/23 Previous Rx's Medication Instructions Recorded finasteride 5 mg tablet 5 mg PO DAILY #90 tabs 07/07/22 rosuvastatin 5 mg tablet 5 mg PO DAILY #90 tabs 07/07/22 metoprolol succinate 25 mg 25 mg PO DAILY Atrial Fib #45 tabs 12/28/22 tablet,extended release 24 hr metoprolol succinate 50 mg 50 mg PO BID #30 tabs 01/01/23 tablet,extended release 24 hr (Toprol XL) Allergies Allergy/AdvReac Type Severity Reaction Status Date / Time No Known Drug Allergies Allergy Verified 01/01/23 09:40 Review of Systems Review of Systems Narrative: GENERAL: negative chills, fatigue, malaise, fever, sweats. HEENT: negative sinus pain, ear pain, sore throat RESPIRATORY: negative dyspnea, cough CARDIOVASCULAR: negative chest pain, positive palpitations GASTROINTESTINAL: negative nausea, vomiting, abdominal pain : negative dysuria, frequency, hematuria MUSCULOSKELETAL: negative muscle or bony pain SKIN: negative rash, skin lesions NEUROLOGIC: negative weakness, numbness, positive dizziness ROS Unobtainable: All systems reviewed & are unremarkable except as noted in HPI and below Patient History Medical History Impaired fasting glucose BPH w urinary obs/LUTS Mixed hyperlipidemia Paroxysmal atrial fibrillation Osteoarthritis of left knee Tricuspid valve regurgitation Closed L5 vertebral fracture ADD (attention deficit disorder) without hyperactivity (09/22/11) History of cardioversion Surgical History History of hemorrhoidectomy Biceps tendon rupture History of vasectomy H/O cardiac radiofrequency ablation History of right hip replacement (~07/2012) History of oral surgery Status post arthroscopy History of cataract removal with insertion of prosthetic lens Family History Brother Age: 75 Diabetes mellitus Heart disease Prostate cancer Father Diabetes mellitus Heart disease Hypertension High cholesterol Alcoholism Parkinsons Social History marital status: (to Miriam) details: lives in [place] household members: spouse lives independently: Yes caregiver/support person: No housing: house education level: master's degree occupational status: other (retired) 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 EYES: Pupils equal round ENT: Mucous membranes moist. NECK: Trachea midline. CARDIOVASCULAR: Tachycardia with Regular rate and rhythm RESPIRATORY: Clear to auscultation. Breath sounds equal bilaterally. No wheezes, rales, or rhonchi. GASTROINTESTINAL: Abdomen soft, non-tender EXTREMITIES: No gross deformities. BACK: No flank tenderness. NEURO: AOx4. SKIN: Warm and dry PSYCH: Not anxious, is cooperative Initial Vital Signs Initial Vital Signs: Vital Signs Pulse Rate 118 H 01/01/23 09:24 Respiratory Rate 31 H 01/01/23 09:24 Pulse Oximetry 97 01/01/23 09:24 Course Orders Ordered: Discontinued Medications Sodium Chloride (Normal Saline 0.9%) 1,000 mls @ 150 mls/hr IV CONT BROOKE Last Admin: 01/01/23 09:43 Dose: 150 mls/hr Documented By: ERIK Metoprolol Succinate (Metoprolol Er 50 Mg Tablet) 50 mg PO NOW ONE Stop: 01/01/23 09:48 Last Admin: 01/01/23 09:56 Dose: 50 mg Documented By: ERIK Vital Signs Vital signs: Vital Signs - 8 hr 01/01/23 09:24 01/01/23 09:25 01/01/23 09:25 Temperature Pulse Rate 118 H 116 H Respiratory Rate 31 H 29 H Blood Pressure 159/92 H Pulse Oximetry 97 96 Oxygen Delivery Method 01/01/23 09:28 01/01/23 09:30 01/01/23 09:30 Temperature 97.9 F Pulse Rate 116 H 118 H Respiratory Rate 16 28 H Blood Pressure 159/92 H 158/97 H Pulse Oximetry 96 98 Oxygen Delivery Method Room Air 01/01/23 09:56 01/01/23 10:00 01/01/23 10:00 Temperature Pulse Rate 100 H 108 H Respiratory Rate 16 Blood Pressure 158/97 H 133/85 Pulse Oximetry 92 Oxygen Delivery Method 01/01/23 10:30 01/01/23 10:30 01/01/23 10:32 Temperature Pulse Rate 103 H 104 H Respiratory Rate 20 Blood Pressure 117/72 117/72 Pulse Oximetry 93 Oxygen Delivery Method Room Air MDM - Arrhythmia/Palpitations Lab Data 01/01/23 09:35 01/01/23 09:35 Labs: Lab Results 01/01/23 Range/Units 09:35 WBC 10.6 (4.5-11.0) X10^3/uL RBC 4.54 (4.5-5.9) X10^6/uL Hgb 15.8 (13.5-17.5) g/dL Hct 43.7 (41-53) % MCV 96.3 (80-100) fL MCH 34.8 H (26-34) PG MCHC 36.1 H (30-36) % RDW 12.2 (11.6-14.8) % Plt Count 236 (150-400) X10^3/uL Neut % (Auto) 72.9 (50-75) % Lymph % (Auto) 18.1 L (25-40) % [place] % (Auto) 6.4 (3-14) % Eos % (Auto) 2.1 (2-4) % Baso % (Auto) 0.5 (0-2) % Neut # (Auto) 7800 H (9187-9483) /uL Lymph # (Auto) 1900 (5764-8646) /uL [place] # (Auto) 700 (0-900) /uL Eos # (Auto) 200 (0-450) /uL Baso # (Auto) 100 (0-100) /uL PT 15.5 H (10.1-12.7) SECONDS INR 1.3 (0.9-1.3) APTT 33 (26-36) SECONDS Sodium 138 (137-145) mmol/L Potassium 3.9 (3.4-5.1) mmol/L Chloride 103 (98-107) mmol/L Carbon Dioxide 25 (22-32) mmol/L BUN 17 (9-20) mg/dL Creatinine 0.95 (0.66-1.25) mg/dL Estimated GFR > 60 (>60) mL/min BUN/Creatinine Ratio 17.9 (6-22) Glucose 140 H (80-110) mg/dL Calcium 9.4 (8.4-10.2) mg/dL Magnesium 2.1 (1.6-2.3) mg/dL Total Bilirubin 0.8 (0.2-1.3) mg/dL AST 27 (17-59) IU/L ALT 25 (<50) IU/L Alkaline Phosphatase 77 (38-126) U/L Total Creatine Kinase 136 (55-170) U/L Troponin I < 0.012 (0.01-0.034) ng/mL Total Protein 7.5 (6.3-8.2) g/dL Albumin 4.3 (3.5-5.0) g/dL Globulin 3.2 (1.7-4.1) g/dL Albumin/Globulin Ratio 1.3 (1.0-2.8) TSH 1.04 D (0.47-4.68) uIU/mL Imaging Data Chest x-ray: Radiologist's Impresson: [address] [address] XRay Report Signed Patient: Sergio Harris MR#: [id number] : 1950 Acct:[id number] Age/Sex: 72 / M Date of Service: 01/01/23 Loc: ED Accession Number: [id number] Procedure: XR chest 1V Ordering Provider: Cirilo Francis MD PROCEDURE: XR CHEST 1V INDICATIONS: chest pain TECHNIQUE: One view of the chest was acquired. COMPARISON: [facility], , XR CHEST 1V, 12/24/2022, 18:04. FINDINGS: Surgical changes and devices: None. Lungs and pleura: Lungs are clear. No pleural effusions or pneumothorax. Mediastinum: Mediastinal contours appear normal. Heart size is normal. Bones and chest wall: No suspicious bony lesions. Overlying soft tissues appear unremarkable. IMPRESSION: No acute cardiopulmonary abnormality is seen. Dictated by: Susana Johnson M.D. on 01/01/2023 at 10:01 Approved by: Susana Johnson M.D. on 01/01/2023 at 10:01 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 Patient is seen here December 24 for the same. Patient was only on baby aspirin daily. He has a low chads score. However he was restarted on Eliquis 8 days ago. Currently on flecainide 100 mg twice a day and metoprolol 25 mg daily. On Eliquis 5 mg twice a day. He did take these medications this morning. He is to see Dr. Novak, with [facility] cardiology, for EDSON and possible cardioversion. He was seen in the office August 2022 with cardiology. At that time his cardiology team had him on flecainide 50 mg twice a day and metoprolol 12.5 mg daily. Denies any chest pain. Does have dizziness and palpitations. No shortness of breath. No numbness tingling or weakness. Fast exam is negative. He states last week his heart rate did go down to 60. No cardioversion done at the time because he was not anticoagulated and in addition his rate was controlled. After history and exam CBC CMP magnesium TSH chest x-ray troponin EKG cardiology consult MDM CC: Palpitation Complicating co-morbidities: History of atrial fibrillation, only recently restarted Eliquis Data collected from: Patient Medical records reviewed: ER records here 8 days ago, August 2022 cardiology office visit Differential considered: Includes but not limited to ME non-STEMI a flutter AFib Exam documented above, pertinent findings include: Tachycardic Lab Test results independently reviewed as above. Pertinent findings: WBC 10.6 hemoglobin 15.8 PT 15.5 INR 1.3 PTT 33 sodium 138 potassium 3.9 calcium 9.4 magnesium 2.1 Independently reviewed EKG EKG atrial flutter rate [address] elevation or depression Imaging studies independently reviewed: Chest x-ray no acute finding Consultations: 9:49 a.m.. Spoke with Cardiology, Dr. Kingsley. He is with [facility] cardiology. Recommends giving metoprolol extended release 50 mg by mouth now. Patient not candidate for cardioversion. If not rate controlled then needs admission with Cardizem drip. Do not give amiodarone. Patient has been on Eliquis only for 8 days Treatments: Metoprolol succinate 50 mg Re-evaluations: 11:11 a.m.. Patient feeling much better. Heart rate now 95. Rhythm strip shows atrial fibrillation Patient feels much better. Blood pressure 126/85. Denies any chest pain dizziness or palpitations. I did review results with patient. Also my discussion with cardiology services. 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 He does agree and understand changes and metoprolol as recommend by his cardiology provider. Return precautions reviewed with him. He desires discharge home Discussion: Appropriate for discharge home. Patient not a candidate for cardioversion as he has been on Eliquis only 8 days, I have reviewed this with Dr. Kingsley, cardiology with patient's cardiology services. Rate is controlled. Patient feeling much better at time of discharge. Return precautions reviewed with him. He desires discharge home. Diagnosis: Paroxysmal atrial fibrillation Discharge Plan Departure Patient Disposition: Home Clinical Impression: Paroxysmal atrial fibrillation Instructions: DI for Atrial Fibrillation Activity Restrictions/Additional Instructions: Please see your cardiology provider as planned and scheduled. Prescription metoprolol succinate 50 mg twice a day has been sent to your [facility]'s pharmacy to continue tonight. This will be your new dosing of metoprolol to take twice a day. You may continue your other medications. Return if worse if any questions or concerns. Your laboratory studies and x-ray are reassuring. Your heart rate has improved. Prescriptions: New metoprolol succinate [Toprol XL] 50 mg tablet extended release 24 hr 50 mg PO BID Qty: 30 0RF No Action docusate sodium 100 MG capsule 200 PO Q DAY Qty: 0 cholecalciferol (vitamin D3) 50 mcg (2,000 unit) capsule 50 mcg PO DAILY ascorbic acid (vitamin C) 1,000 mg tablet 1,000 mg PO DAILY omega-3 fatty acids 1,000 mg capsule 1,000 mg PO DAILY multivitamin Tablet 1 tab PO DAILY flecainide 50 mg tablet 100 mg PO Q12H metoprolol succinate 25 mg tablet extended release 24 hr 25 mg PO DAILY Qty: 45 3RF apixaban 5 mg tablet 5 mg PO BID finasteride 5 mg tablet 5 mg PO DAILY Qty: 90 3RF rosuvastatin 5 mg tablet 5 mg PO DAILY Qty: 90 3RF Referrals: Júnior Flores MD [Primary Care Provider] - Stand Alone Forms: Patient Portal/API
[2023-01-01] MEDS: SODIUM CHLORIDE 0.9% 1,000 ML 150 ML IV (09:43)
[2023-01-01 09:49] LABS: Add Manual Diff / Slide Review NO; Basophils Absolute Auto 100 /uL (0-100); Basophils Percent Auto 0.5 % (0-2); Eosinophils Absolute Auto 200 /uL (0-450); Eosinophils Percent Auto 2.1 % (2-4); Hematocrit 43.7 % (41-53); Hemoglobin 15.8 g/dL (13.5-17.5); Lymphocytes Absolute Auto 1900 /uL (1100-4500); Lymphocytes Percent Auto 18.1 % (25-40); Mean Corpuscular HGB Conc 36.1 % (30-36); Mean Corpuscular Hemoglobin 34.8 PG (26-34); Mean Corpuscular Volume 96.3 fL (80-100); Monocytes Absolute Auto 700 /uL (0-900); Monocytes Percent Auto 6.4 % (3-14); Neutrophils Absolute Auto 7800 /uL (1500-7000); Neutrophils Percent Auto 72.9 % (50-75); Platelet Count 236 X10^3/uL (150-400); Red Blood Cell Count 4.54 X10^6/uL (4.5-5.9); Red Cell Distribution Width 12.2 % (11.6-14.8); White Blood Cell Count 10.6 X10^3/uL (4.5-11.0)
--- NOTE | 2023-01-01 09:52 | PC.NURSE ---
Pt had an ablation performed 8 years ago, and also has a history of 5x electrical cardioversions years ago. Pt was supposed to be hearing back from his punch card operator Dr Novak about scheduling a EDSON procedure and cardioversion. Pt's only complaint today is slight lightheadedness and tachycardic, patient denying palpations currently.
[2023-01-01] MEDS: METOPROLOL ER 50 MG TABLET PO (09:56)
[2023-01-01 10:11] LABS: INR 1.3 (0.9-1.3); Prothrombin Time 15.5 SECONDS (10.1-12.7)
[2023-01-01 10:14] LABS: PTT Partial Thromboplastin Tim 33 SECONDS (26-36)
[2023-01-01 10:21] LABS: Magnesium 2.1 mg/dL (1.6-2.3)
[2023-01-01 10:22] LABS: Alanine Aminotransferase 25 IU/L (<50); Albumin 4.3 g/dL (3.5-5.0); Albumin Globulin Ratio 1.3 (1.0-2.8); Alkaline Phosphatase 77 U/L (38-126); Aspartate Aminotransferase 27 IU/L (17-59); BUN Creatinine Ratio 17.9 (6-22); Bilirubin Total 0.8 mg/dL (0.2-1.3); Blood Urea Nitrogen 17 mg/dL (9-20); Calcium 9.4 mg/dL (8.4-10.2); Carbon Dioxide 25 mmol/L (22-32); Chloride 103 mmol/L (98-107); Creatine Kinase 136 U/L (55-170); Estimated Glomerular Filt Rate > 60 mL/min (>60); Globulin 3.2 g/dL (1.7-4.1); Glucose 140 mg/dL (80-110); HEMOLYSIS < 15 (0-50); Potassium 3.9 mmol/L (3.4-5.1); Sodium 138 mmol/L (137-145); Total Protein 7.5 g/dL (6.3-8.2)
[2023-01-01 10:34] LABS: Troponin I < 0.012 ng/mL (0.01-0.034)
[2023-01-01 10:53] LABS: Thyroid Stimulating Hormone 1.04 uIU/mL (0.47-4.68)
== END 2023-01-01 11:34 | disposition home or self-care (01) ==
PROVIDERS: Emergency Provider Emergency Medicine; PCP Internal Medicine
DX: I48.0 Paroxysmal atrial fibrillation (principal)
CPT/HCPCS: 36415; 71045; 80053; 82550; 83735; 84443; 84484; 85025; 85610; 85730; 93005; 93010; 99284

== ENCOUNTER 2023-02-02 14:29 | Emergency (ER) | payer OTHER, SELFPAY ==
[2023-02-02] VITALS (16 sets, daily range): BP systolic 106–172; BP diastolic 67–98; PULSE 97–122; RESP 11–25; TEMP 36.9; O2SAT 92–97; BMI 29.5
--- NOTE | 2023-02-02 14:39 | DI.RAD.S_ITS ---
PROCEDURE: XR CHEST 1V INDICATIONS: chest pain TECHNIQUE: One view of the chest was acquired. COMPARISON: [facility], CR, XR CHEST 1V, 01/01/2023, 9:34. FINDINGS: Surgical changes and devices: None. Lungs and pleura: Lungs are clear. No pleural effusions or pneumothorax. Mediastinum: Mediastinal contours appear normal. Heart size is normal. Bones and chest wall: No suspicious bony lesions. Moderate degenerative changes at the AC joints. Overlying soft tissues appear unremarkable. IMPRESSION: No acute cardiopulmonary abnormality is seen. Dictated by: Federico Gimenez M.D. on 02/02/2023 at 15:35 Approved by: Federico Gimenez M.D. on 02/02/2023 at 15:35
[2023-02-02 14:58] LABS: INR 1.4 (0.9-1.3); Prothrombin Time 15.9 SECONDS (9.4-12.5)
[2023-02-02 15:01] LABS: PTT Partial Thromboplastin Tim 32 SECONDS (25.1-36.5)
[2023-02-02 15:02] LABS: Alanine Aminotransferase 28 IU/L (<50); Albumin 4.6 g/dL (3.5-5.0); Albumin Globulin Ratio 1.2 (1.0-2.8); Alkaline Phosphatase 68 U/L (38-126); Aspartate Aminotransferase 38 IU/L (17-59); BUN Creatinine Ratio 16.8 (6-22); Bilirubin Total 0.8 mg/dL (0.2-1.3); Blood Urea Nitrogen 18 mg/dL (9-20); Calcium 9.4 mg/dL (8.4-10.2); Carbon Dioxide 26 mmol/L (22-32); Chloride 100 mmol/L (98-107); Creatine Kinase 176 U/L (55-170); Estimated Glomerular Filt Rate > 60 mL/min (>60); Globulin 3.7 g/dL (1.7-4.1); Glucose 119 mg/dL (80-110); HEMOLYSIS < 15 (0-50); Lipase 63 U/L (23-300); Magnesium 2.1 mg/dL (1.6-2.3); Potassium 4.3 mmol/L (3.4-5.1); Sodium 135 mmol/L (137-145); Total Protein 8.3 g/dL (6.3-8.2)
[2023-02-02 15:14] LABS: Troponin I < 0.012 ng/mL (0.01-0.034)
--- NOTE | 2023-02-02 18:00 | ED.ARRPALP ---
HPI - Arrhythmia/Palpitations General Chief Complaint: Arrhythmia/Palpitations Stated Complaint: states AFIB/chest discomfort/Covid+ Time Seen by Provider: 02/02/23 15:32 Source: patient Mode of arrival: Ambulatory History of Present Illness HPI narrative: 72-year-old male with a history of atrial fibrillation that has been considered paroxysmal, he is had multiple episodes of atrial fibrillation recently and been seen here a couple of times previously. He is currently anticoagulated on Eliquis. His current regimen has been flecainide 100 p.o. b.i.d. and metoprolol succinate 12.5 p.o. b.i.d.. Those were ordered with the patient in sinus rhythm. Most recently in atrial fibrillation he is done well with rate control on metoprolol succinate 50 p.o. b.i.d.. He came down with COVID 3 days ago. He is not short of breath he notes a rapid heart rate with heart rates in the 110-160 range today. He is having a little bit of left axillary pain which is tender and hurts when he breathes consistent with coughing. He is not been fainting. He is not having fevers he is not had any vomiting. Related Data Home Medications Medication Instructions Recorded Confirmed docusate sodium 100 mg capsule 200 PO Q DAY ##0 05/01/16 01/31/23 ascorbic acid (vitamin C) 1,000 mg 1,000 mg PO DAILY 07/06/21 01/31/23 tablet cholecalciferol (vitamin D3) 50 50 mcg PO DAILY 07/06/21 01/31/23 mcg (2,000 unit) capsule multivitamin 1 tab PO DAILY 07/06/21 01/31/23 omega-3 fatty acids 1,000 mg 1,000 mg PO DAILY 07/06/21 01/31/23 capsule apixaban 5 mg tablet 5 mg PO BID 12/28/22 01/31/23 flecainide 50 mg tablet 100 mg PO Q12H 12/28/22 01/31/23 finasteride 5 mg tablet 5 mg PO .Q3days 01/31/23 01/31/23 Previous Rx's Medication Instructions Recorded rosuvastatin 5 mg tablet 5 mg PO DAILY #90 tabs 07/07/22 metoprolol succinate 25 mg 25 mg PO DAILY Atrial Fib #45 tabs 12/28/22 tablet,extended release 24 hr Allergies Allergy/AdvReac Type Severity Reaction Status Date / Time No Known Drug Allergies Allergy Verified 02/02/23 14:40 Patient History Medical History Impaired fasting glucose BPH w urinary obs/LUTS Mixed hyperlipidemia Paroxysmal atrial fibrillation Osteoarthritis of left knee Tricuspid valve regurgitation Closed L5 vertebral fracture ADD (attention deficit disorder) without hyperactivity (09/22/11) History of cardioversion Surgical History History of hemorrhoidectomy Biceps tendon rupture History of vasectomy H/O cardiac radiofrequency ablation History of right hip replacement (~07/2012) History of oral surgery Status post arthroscopy History of cataract removal with insertion of prosthetic lens Family History Brother Age: 75 Diabetes mellitus Heart disease Prostate cancer Father Diabetes mellitus Heart disease Hypertension High cholesterol Alcoholism Parkinsons Social History marital status: (to Miriam) details: lives in [place] household members: spouse lives independently: Yes caregiver/support person: No housing: house education level: master's degree occupational status: other (retired) 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, 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: [employer] Smoking Status: Former smoker substance use type: does not use Smoking Status: Former smoker alcohol intake frequency: a few times a week Alcohol type: beer and hard liquor Substance Use Type: does not use Exam Initial Vital Signs Initial Vital Signs: Vital Signs Temperature 98.4 F 02/02/23 14:31 Pulse Rate 103 H 02/02/23 14:31 Respiratory Rate 14 02/02/23 14:31 Blood Pressure 172/98 H 02/02/23 14:31 Pulse Oximetry 97 02/02/23 14:31 Oxygen Delivery Method Room Air 02/02/23 14:31 Const General: No acute distress HENMT Head: normocephalic and atraumatic Resp Effort & Inspection: normal respiratory effort Auscultation: clear to auscultation bilaterally Cardio Rate: tachycardic Rhythm: abnormal rhythm Other: Irregularly irregular Skin Other: Skin is warm and dry Neuro General: patient alert and patient oriented x3 Course Orders Ordered: ED Orders 02/02/23 14:39 XR chest 1V Stat EKG-12 Lead Stat 02/02/23 14:40 Comprehensive Metabolic Panel Stat Lipase Stat Magnesium Stat PTT Partial Thromboplastin Karlos Stat Prothrombin Time INR Stat Troponin & CK Cardiac Panel Stat 02/02/23 18:35 Complete Blood Count AUTO DIFF Stat Discontinued Medications Metoprolol Succinate (Metoprolol Er 50 Mg Tablet) 50 mg PO NOW ONE Stop: 02/02/23 19:42 Last Admin: 02/02/23 19:55 Dose: 50 mg Documented By: OTIS Reevaluation(s) Reevaluation #1: Rate is improved after metoprolol, we will discharge home. Vital Signs Vital signs: Vital Signs - 8 hr 02/02/23 14:31 02/02/23 14:36 02/02/23 14:37 Temperature 98.4 F Pulse Rate 103 H Respiratory Rate 14 Blood Pressure 172/98 H 172/98 H Pulse Oximetry 97 96 Oxygen Delivery Method Room Air 02/02/23 14:37 02/02/23 15:00 02/02/23 15:01 Temperature Pulse Rate 113 H 106 H Respiratory Rate 25 H 17 Blood Pressure 134/74 Pulse Oximetry 97 94 Oxygen Delivery Method 02/02/23 15:01 02/02/23 15:30 02/02/23 15:30 Temperature Pulse Rate 122 H 106 H Respiratory Rate 22 18 Blood Pressure 106/73 Pulse Oximetry 95 94 Oxygen Delivery Method 02/02/23 16:00 02/02/23 16:00 02/02/23 16:30 Temperature Pulse Rate 100 H 97 H Respiratory Rate 19 18 Blood Pressure 117/75 Pulse Oximetry 92 95 Oxygen Delivery Method 02/02/23 16:30 02/02/23 17:00 02/02/23 17:00 Temperature Pulse Rate 105 H Respiratory Rate 15 Blood Pressure 112/74 109/77 Pulse Oximetry 96 Oxygen Delivery Method 02/02/23 17:30 02/02/23 17:30 02/02/23 18:00 Temperature Pulse Rate 103 H 113 H Respiratory Rate 22 11 L Blood Pressure 140/69 Pulse Oximetry 95 97 Oxygen Delivery Method 02/02/23 18:00 02/02/23 18:30 02/02/23 18:30 Temperature Pulse Rate 105 H Respiratory Rate 20 Blood Pressure 123/78 120/67 Pulse Oximetry 94 Oxygen Delivery Method 02/02/23 19:00 02/02/23 19:00 02/02/23 19:30 Temperature Pulse Rate 102 H 100 H Respiratory Rate 21 19 Blood Pressure 110/74 Pulse Oximetry 94 93 Oxygen Delivery Method 02/02/23 19:30 02/02/23 20:00 02/02/23 20:00 Temperature Pulse Rate 101 H Respiratory Rate 18 Blood Pressure 115/73 128/78 Pulse Oximetry 95 Oxygen Delivery Method MDM - Arrhythmia/Palpitations Medical Records Medical records narrative: Reviewed recent emergency department notes Lab Data Lab results narrative: CBC with diff CMP are unremarkable coags are normal consistent with being on apixaban 02/02/23 18:35 02/02/23 14:40 Labs: Lab Results 02/02/23 02/02/23 Range/Units 14:40 18:35 WBC 6.8 (4.5-11.0) X10^3/uL RBC 4.57 (4.5-5.9) X10^6/uL Hgb 15.9 (13.5-17.5) g/dL Hct 44.2 (41-53) % MCV 96.7 (80-100) fL MCH 34.8 H (26-34) PG MCHC 36.0 (30-36) % RDW 12.6 (11.6-14.8) % Plt Count 152 (150-400) X10^3/uL Neut % (Auto) 59.5 (50-75) % Lymph % (Auto) 29.0 (25-40) % Bucks % (Auto) 10.0 (3-14) % Eos % (Auto) 1.1 L (2-4) % Baso % (Auto) 0.4 (0-2) % Neut # (Auto) 4100 (1134-9926) /uL Lymph # (Auto) 2000 (2754-9769) /uL Bucks # (Auto) 700 (0-900) /uL Eos # (Auto) 100 (0-450) /uL Baso # (Auto) 0 (0-100) /uL PT 15.9 H (9.4-12.5) SECONDS INR 1.4 H (0.9-1.3) APTT 32 (25.1-36.5) SECONDS Sodium 135 L (137-145) mmol/L Potassium 4.3 (3.4-5.1) mmol/L Chloride 100 (98-107) mmol/L Carbon Dioxide 26 (22-32) mmol/L BUN 18 (9-20) mg/dL Creatinine 1.07 (0.66-1.25) mg/dL Estimated GFR > 60 (>60) mL/min BUN/Creatinine Ratio 16.8 (6-22) Glucose 119 H (80-110) mg/dL Calcium 9.4 (8.4-10.2) mg/dL Magnesium 2.1 (1.6-2.3) mg/dL Total Bilirubin 0.8 (0.2-1.3) mg/dL AST 38 (17-59) IU/L ALT 28 (<50) IU/L Alkaline Phosphatase 68 (38-126) U/L Total Creatine Kinase 176 H (55-170) U/L Troponin I < 0.012 (0.01-0.034) ng/mL Total Protein 8.3 H (6.3-8.2) g/dL Albumin 4.6 (3.5-5.0) g/dL Globulin 3.7 (1.7-4.1) g/dL Albumin/Globulin Ratio 1.2 (1.0-2.8) Lipase 63 (23-300) U/L Imaging Data Chest x-ray: My Impression: Independent review of chest x-ray no acute disease Radiologist's Impresson: Per Radiology report, no acute cardiopulmonary disease MDM Narrative Medical decision making narrative: 72-year-old man with intermittent atrial fibrillation presenting with atrial fibrillation and rapid heart rate. He is had a couple of visits here recently for rate control with problematic. He would did well previously on metoprolol XL 50 twice daily, I have restarted him on this. Additionally he is COVID positive. He is not hypoxic no infiltrate on his chest x-ray hip. Nontoxic he does not have acute respiratory failure today. There is no reason to suspect ischemic disease given his extensive history of atrial fibrillation. He will continue with anticoagulation and rate control and then follow up with Cardiology. Discharge Plan Departure Patient Disposition: Home Clinical Impression: Atrial fibrillation Qualifiers: Atrial fibrillation type: paroxysmal Qualified Code(s): I48.0 - Paroxysmal atrial fibrillation Activity Restrictions/Additional Instructions: Your atrial fibrillation has recurred. At this point I would like you to stop the flecainide again and resume metoprolol XL 50 mg twice daily. 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 Make sure that you are getting adequate fluids and rest while you are ill. If you are having chest pain increasing shortness of breath or persistent fast heart rate return to the emergency department. Prescriptions: No Action docusate sodium 100 MG capsule 200 PO Q DAY Qty: 0 cholecalciferol (vitamin D3) 50 mcg (2,000 unit) capsule 50 mcg PO DAILY ascorbic acid (vitamin C) 1,000 mg tablet 1,000 mg PO DAILY omega-3 fatty acids 1,000 mg capsule 1,000 mg PO DAILY multivitamin Tablet 1 tab PO DAILY flecainide 50 mg tablet 100 mg PO Q12H metoprolol succinate 25 mg tablet extended release 24 hr 25 mg PO DAILY Qty: 45 3RF apixaban 5 mg tablet 5 mg PO BID finasteride 5 mg tablet 5 mg PO .Q3days rosuvastatin 5 mg tablet 5 mg PO DAILY Qty: 90 3RF Referrals: Júnior Flores MD [Primary Care Provider] - Stand Alone Forms: Patient Portal/API
[2023-02-02 18:52] LABS: Add Manual Diff / Slide Review NO; Basophils Absolute Auto 0 /uL (0-100); Basophils Percent Auto 0.4 % (0-2); Eosinophils Absolute Auto 100 /uL (0-450); Eosinophils Percent Auto 1.1 % (2-4); Hematocrit 44.2 % (41-53); Hemoglobin 15.9 g/dL (13.5-17.5); Lymphocytes Absolute Auto 2000 /uL (1100-4500); Mean Corpuscular Hemoglobin 34.8 PG (26-34); Mean Corpuscular Volume 96.7 fL (80-100); Monocytes Absolute Auto 700 /uL (0-900); Neutrophils Absolute Auto 4100 /uL (1500-7000); Neutrophils Percent Auto 59.5 % (50-75); Platelet Count 152 X10^3/uL (150-400); Red Blood Cell Count 4.57 X10^6/uL (4.5-5.9); Red Cell Distribution Width 12.6 % (11.6-14.8); White Blood Cell Count 6.8 X10^3/uL (4.5-11.0)
[2023-02-02] MEDS: METOPROLOL ER 50 MG TABLET PO (19:55)
== END 2023-02-02 20:39 | disposition home or self-care (01) ==
PROVIDERS: Emergency Medicine; Emergency Provider Emergency Medicine; PCP Internal Medicine
DX: I48.0 Paroxysmal atrial fibrillation (principal); Z79.01 Long term (current) use of anticoagulants; R07.9 Chest pain, unspecified
CPT/HCPCS: 36415; 71045; 80053; 82550; 83690; 83735; 84484; 85025; 85610; 85730; 93005; 93010; 99284

== ENCOUNTER → 2023-04-10 13:53 | Outpatient (CLI) | payer OTHER, SELFPAY ==
[2023-04-10 15:22] LABS: BUN Creatinine Ratio 19.6 (6-22); Blood Urea Nitrogen 18 mg/dL (9-20); Calcium 8.9 mg/dL (8.4-10.2); Carbon Dioxide 27 mmol/L (22-32); Chloride 105 mmol/L (98-107); Estimated Glomerular Filt Rate > 60 mL/min (>60); Glucose 110 mg/dL (80-110); HEMOLYSIS < 15 (0-50); Potassium 4.5 mmol/L (3.4-5.1); Sodium 138 mmol/L (137-145)
== END ==
PROVIDERS: PCP Internal Medicine; Referring Provider Internal Medicine Cardiovascular Disease; Visit Provider Internal Medicine Cardiovascular Disease
DX: I48.0 Paroxysmal atrial fibrillation (principal)
CPT/HCPCS: 36415; 80048

== ENCOUNTER → 2023-05-04 11:55 | Outpatient (CLI) | payer OTHER, SELFPAY ==
[2023-05-04 12:56] LABS: Add Manual Diff / Slide Review NO; Basophils Absolute Auto 0 /uL (0-100); Basophils Percent Auto 0.3 % (0-2); Eosinophils Absolute Auto 100 /uL (0-450); Eosinophils Percent Auto 1.7 % (2-4); Hematocrit 45.9 % (41-53); Hemoglobin 16.4 g/dL (13.5-17.5); Lymphocytes Absolute Auto 2100 /uL (1100-4500); Mean Corpuscular HGB Conc 35.6 % (30-36); Mean Corpuscular Hemoglobin 34.7 PG (26-34); Mean Corpuscular Volume 97.4 fL (80-100); Monocytes Absolute Auto 800 /uL (0-900); Monocytes Percent Auto 8.9 % (3-14); Neutrophils Absolute Auto 5500 /uL (1500-7000); Neutrophils Percent Auto 64.1 % (50-75); Platelet Count 205 X10^3/uL (150-400); Red Blood Cell Count 4.72 X10^6/uL (4.5-5.9); Red Cell Distribution Width 13.4 % (11.6-14.8); White Blood Cell Count 8.5 X10^3/uL (4.5-11.0)
[2023-05-04 13:34] LABS: BUN Creatinine Ratio 18.4 (6-22); Blood Urea Nitrogen 18 mg/dL (9-20); Calcium 9.2 mg/dL (8.4-10.2); Carbon Dioxide 30 mmol/L (22-32); Chloride 107 mmol/L (98-107); Estimated Glomerular Filt Rate > 60 mL/min (>60); Glucose 111 mg/dL (80-110); HEMOLYSIS < 15 (0-50); Potassium 4.4 mmol/L (3.4-5.1); Sodium 140 mmol/L (137-145)
== END ==
PROVIDERS: PCP Internal Medicine; Referring Provider Physician Assistant; Visit Provider Physician Assistant
DX: I48.0 Paroxysmal atrial fibrillation (principal)
CPT/HCPCS: 36415; 80048; 85025

== ENCOUNTER → 2023-07-10 11:48 | Outpatient (CLI) | payer OTHER, SELFPAY ==
[2023-07-10 12:51] LABS: Hematocrit 41.5 % (41-53); Hemoglobin 14.8 g/dL (13.5-17.5); Mean Corpuscular HGB Conc 35.8 % (30-36); Mean Corpuscular Hemoglobin 34.7 PG (26-34); Platelet Count 199 X10^3/uL (150-400); Red Blood Cell Count 4.28 X10^6/uL (4.5-5.9); Red Cell Distribution Width 12.6 % (11.6-14.8); White Blood Cell Count 8.1 X10^3/uL (4.5-11.0)
[2023-07-10 13:30] LABS: Aspartate Aminotransferase 31 IU/L (17-59); BUN Creatinine Ratio 17.1 (6-22); Blood Urea Nitrogen 14 mg/dL (9-20); Calcium 8.5 mg/dL (8.4-10.2); Carbon Dioxide 26 mmol/L (22-32); Chloride 106 mmol/L (98-107); Cholesterol 104 mg/dL (140-199); Estimated Glomerular Filt Rate > 60 mL/min (>60); Glucose 104 mg/dL (80-110); HDL Cholesterol 44 mg/dL (40-60); HEMOLYSIS < 15 (0-50); LDL Cholesterol Calculated 29 mg/dL (<100); Potassium 4.5 mmol/L (3.4-5.1); Sodium 137 mmol/L (137-145); Triglycerides 153 mg/dL (35-150)
[2023-07-10 13:32] LABS: Hemoglobin A1C% w Est Avg Glu 5.6 % (4.0-6.0)
[2023-07-10 13:52] LABS: Prostate Specific Antigen 0.202 ng/mL (0.10-4.00)
== END ==
PROVIDERS: PCP Internal Medicine; Referring Provider Internal Medicine; Visit Provider Internal Medicine
DX: N40.1 Benign prostatic hyperplasia with lower urinary tract symptoms (principal); N13.8 Other obstructive and reflux uropathy; R73.01 Impaired fasting glucose; E78.2 Mixed hyperlipidemia; I48.0 Paroxysmal atrial fibrillation; Z79.01 Long term (current) use of anticoagulants
CPT/HCPCS: 36415; 80048; 80061; 83036; 84153; 84450; 85027

== ENCOUNTER → 2023-10-10 08:55 | Outpatient (CLI) | payer OTHER, SELFPAY ==
--- NOTE | 2023-10-10 08:57 | DI.MRI.S_ITS ---
PROCEDURE: MR FOOT RT WO/W CON INDICATIONS: GANGLION RT FOOT AND ANKLE TECHNIQUE: Noncontrast coronal T1 spin echo and STIR, sagittal T1 spin echo with fat saturation and STIR, axial T1 spin echo and T2 fast spin echo with fat saturation. After the administration of contrast, axial/sagittal/coronal T1 spin echo with fat saturation through the right foot. COMPARISON: None. FINDINGS: Image quality: Excellent. Bones: [id number] midfoot and forefoot joint osteoarthritic changes are seen with joint space narrowing, subchondral sclerosis and small marginal osteophyte formation more notably at 1st MTP joint. Nonspecific intraosseous cyst formation involving 3rd metatarsal base. No suspicious bony lesions or area of abnormal intraosseous enhancement. Soft tissues: No soft tissue masses are visualized. The scanned muscles demonstrate normal overall bulk and internal signal. Subcutaneous tissues appear normal as well. No abnormal soft tissue enhancement. No gross signal abnormality is seen in visualized plantar foot muscles. There is IMPRESSION: 1. No soft tissue mass or ganglion cyst is seen in midfoot and forefoot. No enhancing soft tissue mass. 2. Mild midfoot and hindfoot joint osteoarthritis. No fracture or dislocation. Nonspecific subcortical cystic changes involving 3rd metatarsal base. No area of abnormal intraosseous enhancement. 3. Visualized extensor and flexor tendons are intact. Dictated by: Luis M Ratliff M.D. on 10/10/2023 at 15:23 Approved by: Luis M Ratliff M.D. on 10/10/2023 at 15:27
--- NOTE | 2023-10-10 08:57 | DI.MRI.S_ITS ---
PROCEDURE: MR ANKLE RT WO/W CON INDICATIONS: GANGLION RT FOOT AND ANKLE TECHNIQUE: Noncontrast sagittal T1 spin echo and T2 fast spin echo with fat saturation, axial proton density fast spin echo and T2 fast spin echo with fat saturation, axial T1 spin echo with fat saturation, coronal T1 spin echo and T2 fast spin echo with fat saturation through the ankle/hindfoot. Post-contrast axial, coronal, and sagittal T1 spin echo with fat saturation through the ankle/hindfoot. COMPARISON: None. FINDINGS: Image quality: Excellent. Bones and joints: No suspicious intraosseous enhancement. Small dorsal calcaneal enthesophyte is seen. No marrow edema. No acute fracture or dislocation. No gross osteochondral injuries of talar dome. Small tibiotalar joint effusion is seen, no gross loose bodies. Medial structures: The posterior tibialis tendon is thickened with small amount of fluid distending tendon sheath. The flexor digitorum longus, and flexor hallucis longus tendons are intact. The posterior tibial neurovascular bundle appears normal within the tarsal tunnel, without extrinsic mass effect. The deltoid ligament is thickened. The spring ligament is intact. Lateral structures: Mild soft tissue edema and swelling along anterior and lateral aspect of ankle joint is seen. The anterior talofibular ligament is thickened with intrasubstance T2 hyperintense signal. The calcaneofibular, and posterior talofibular ligaments appear intact. More superiorly, the anterior and posterior tibiofibular ligaments appear intact, as is the intermalleolar ligament. The tibiofibular syndesmosis is normal in width at 2 mm or less. The peroneus brevis tendon is intact. Thickened peroneus longus tendon with intrasubstance T2 hyperintense signal at the level of mid to distal calcaneus extending to its distal insertion is seen. The sinus tarsi demonstrates normal fatty signal, without edema, fibrosis, or cyst formation. Visualized sinus tarsi components (cervical ligament, interosseous talocalcaneal ligament, roots of the inferior extensor retinaculum) appear normal. Anterior structures: The tibialis anterior, extensor hallucis longus, and extensor digitorum longus tendons appear intact. The dorsal talonavicular ligament appears intact. Posterior and plantar structures: Diffusely thickened Achilles tendon with intrasubstance T2 hyperintense signal extending to its posterior calcaneal insertion and mild soft tissue edema within pre Achilles fat. No full-thickness Achilles tendon rupture. Medial and lateral bands of the plantar fascia are of normal thickness. There is edema involving proximal abductor hallucis muscle at the level of mid to distal calcaneus . And may represent muscle strain versus tendon vision injury. IMPRESSION: 1. Moderate Achilles tendinosis extending to its posterior calcaneal insertion. No full-thickness Achilles tendon rupture. 2. No marrow edema. No fracture or dislocation. No abnormal intraosseous enhancement. Small dorsal calcaneal enthesophyte. No osteochondral injuries of talar dome. 3. Low-grade tenosynovitis involving posterior tibialis tendon near its distal insertion. 4. Mild to moderate peroneus longus tendinosis as above. No full-thickness tendon rupture. 5. Low-grade deltoid ligament sprain. Low-grade intrasubstance partial-thickness tear involving ATFL. 6. Edema involving proximal portion of the abductor hallucis muscle concerning for muscle strain versus denervation suggest clinical correlation. No other muscle signal abnormality is seen. Dictated by: Luis M Ratliff M.D. on 10/10/2023 at 15:27 Approved by: Luis M Ratliff M.D. on 10/10/2023 at 15:43
== END ==
PROVIDERS: PCP Internal Medicine; Referring Provider Podiatrist; Visit Provider Podiatrist
DX: M67.479 Ganglion, unspecified ankle and foot (principal); M19.071 Primary osteoarthritis, right ankle and foot; M77.31 Calcaneal spur, right foot; M65.871 Other synovitis and tenosynovitis, right ankle and foot; S93.421A Sprain of deltoid ligament of right ankle, initial encounter; S93.491A Sprain of other ligament of right ankle, initial encounter; M25.471 Effusion, right ankle
CPT/HCPCS: 73720; 73723; A9579

== ENCOUNTER → 2023-12-20 11:52 | Outpatient (CLI) | payer OTHER, SELFPAY ==
--- NOTE | 2023-12-20 11:54 | DI.MRI.S_ITS ---
PROCEDURE: MR LUMBAR SPINE WO CON INDICATIONS: SPINAL STENOSIS TECHNIQUE: Noncontrast sagittal T1 spin echo and T2 fast echo, sagittal STIR, and T2 fast spin echo through the lumbar spine. In cases with scoliosis, additional coronal T2 fast spin echo may be performed. COMPARISON: [facility] [place] [facility], CR, XR LUMBAR SPINE 2 OR 3 VIEWS, 12/13/2023, 11:56. FINDINGS: Image quality: Diagnostic, with note made of motion artifact. Alignment and Curvature: There is minimal retrolisthesis at L4-L5. Bone Marrow: Marrow is of normal overall signal. No acute vertebral body compression fractures. Spinal Cord: Conus medullaris terminates at the L1 level. Visualized cord demonstrates normal signal and size. Paraspinous Soft Tissues: No paravertebral masses. T12-L1: Mild loss of disc height is seen. Loss of disc signal is seen. Mild generalized disc bulge is seen. No significant neural foraminal or central canal narrowing can be seen. L1-L2: The disc height is well-preserved. Loss of disc signal is seen at this level. Mild to moderate disc bulge is seen, with a mild central disc protrusion. There is mild right-sided and moderate left-sided neural foraminal narrowing. Mild to moderate central canal narrowing is seen. L2-L3: There is at least moderate loss of disc height and disc signal seen. Reactive marrow endplate changes are seen posteriorly, which are hyperintense on T1-weighted and T2-weighted imaging and most consistent with fatty metaplasia (Modic type II changes). Moderate disc bulge is seen, which is eccentric to the left. There is a central disc osteophyte protrusion. Mild bilateral neural foraminal narrowing is seen. Moderate central canal narrowing is seen. L3-L4: At least moderate loss of disc height and disc signal can be seen. Reactive marrow endplate changes are seen, which demonstrate mixed T1 weighted and T2-weighted signal, and are attributed to a combination of edema and fatty metaplasia (Modic type I and Modic type II changes). At least moderate disc bulge is seen at this level. There is a central disc osteophyte protrusion. Moderate facet joint hypertrophy is seen. [id number]-zo-rypgoekw bilateral neural foraminal narrowing can be seen. Moderate central canal narrowing is seen. L4-L5: Moderate loss of disc height is seen. Loss of disc signal is seen. Reactive marrow endplate changes are seen posteriorly, which are hyperintense on T1-weighted and T2-weighted imaging and most consistent with fatty metaplasia (Modic type II changes). Moderate disc bulge is seen, which is eccentric to the right. Moderate to prominent facet hypertrophy is seen. Associated hypertrophy of the ligamentum flavum can be seen. There is at least moderate right-sided neural foraminal narrowing, with a degree of compression upon the exiting right L4 nerve root. Mild to moderate left-sided neural foraminal narrowing is seen. Moderate central canal narrowing is seen. L5-S1: The disc height is well-preserved. Loss of disc signal is seen at this level. Moderate generalized disc bulge is seen. Mild to moderate facet hypertrophy is seen. Moderate bilateral neural foraminal narrowing is seen. No central canal narrowing is seen. IMPRESSION: Multiple levels of lumbar spine degenerative change can be seen, which are overall worst at L3-L4 and L4-L5. Dictated by: Ke Linn M.D. on 12/20/2023 at 16:33 Approved by: Ke Linn M.D. on 12/20/2023 at 16:38
== END ==
PROVIDERS: PCP Internal Medicine; Referring Provider Orthopaedic Surgery Orthopaedic Surgery of the Spine; Visit Provider Orthopaedic Surgery Orthopaedic Surgery of the Spine
DX: M48.062 Spinal stenosis, lumbar region with neurogenic claudication (principal); M47.816 Spondylosis without myelopathy or radiculopathy, lumbar region; M47.817 Spondylosis without myelopathy or radiculopathy, lumbosacral region
CPT/HCPCS: 72148

== ENCOUNTER → 2024-06-18 10:06 | Outpatient (CLI) | payer OTHER, SELFPAY ==
[2024-06-18 10:40] LABS: Add Manual Diff / Slide Review NO; Basophils Absolute Auto 0 /uL (0-100); Basophils Percent Auto 0.5 % (0-2); Eosinophils Absolute Auto 200 /uL (0-450); Eosinophils Percent Auto 2.6 % (2-4); Hematocrit 43.2 % (41-53); Hemoglobin 15.3 g/dL (13.5-17.5); Lymphocytes Absolute Auto 2100 /uL (1100-4500); Lymphocytes Percent Auto 21.9 % (25-40); Mean Corpuscular HGB Conc 35.4 % (30-36); Mean Corpuscular Hemoglobin 34.9 PG (26-34); Mean Corpuscular Volume 98.6 fL (80-100); Monocytes Absolute Auto 700 /uL (0-900); Monocytes Percent Auto 7.3 % (3-14); Neutrophils Absolute Auto 6400 /uL (1500-7000); Neutrophils Percent Auto 67.7 % (50-75); Platelet Count 192 X10^3/uL (150-400); Red Blood Cell Count 4.38 X10^6/uL (4.5-5.9); Red Cell Distribution Width 12.2 % (11.6-14.8); White Blood Cell Count 9.5 X10^3/uL (4.5-11.0)
[2024-06-18 11:08] LABS: BUN Creatinine Ratio 19.5 (6-22); Blood Urea Nitrogen 17 mg/dL (9-20); Calcium 9.3 mg/dL (8.4-10.2); Carbon Dioxide 27 mmol/L (22-32); Chloride 102 mmol/L (98-107); Estimated Glomerular Filt Rate > 60 mL/min (>60); Glucose 103 mg/dL (70-99); HEMOLYSIS < 15 (0-50); Potassium 4.1 mmol/L (3.4-5.1); Sodium 137 mmol/L (137-145)
== END ==
PROVIDERS: PCP Internal Medicine; Referring Provider Internal Medicine Cardiovascular Disease; Visit Provider Internal Medicine Cardiovascular Disease
DX: I48.0 Paroxysmal atrial fibrillation (principal)
CPT/HCPCS: 36415; 80048; 85025

== ENCOUNTER → 2024-07-16 10:22 | Outpatient (CLI) | payer OTHER, SELFPAY ==
[2024-07-16 11:07] LABS: Hemoglobin A1C% w Est Avg Glu 5.6 % (4.0-6.0)
[2024-07-16 14:13] LABS: Cholesterol 122 mg/dL (140-199); Glucose 92 mg/dL (70-99); HDL Cholesterol 45 mg/dL (40-60); LDL Cholesterol Calculated 42 mg/dL (<100); Triglycerides 176 mg/dL (35-150)
== END ==
PROVIDERS: PCP Internal Medicine; Referring Provider Internal Medicine; Visit Provider Internal Medicine
DX: R73.01 Impaired fasting glucose (principal); E78.2 Mixed hyperlipidemia; N40.1 Benign prostatic hyperplasia with lower urinary tract symptoms; N13.8 Other obstructive and reflux uropathy
CPT/HCPCS: 36415; 80061; 82947; 83036; 84153

== ENCOUNTER 2024-10-31 13:15 | Emergency (ER) | payer OTHER, SELFPAY ==
[2024-10-31 14:03] VITALS: BP 147/76; PULSE 71; RESP 20; TEMP 36.5; O2SAT 98; BMI 28.7
--- NOTE | 2024-10-31 14:07 | DI.US.S_ITS ---
PROCEDURE: US PERIPH VENOUS LOW EXTREM RT INDICATIONS: r/o dvt TECHNIQUE: Real-time imaging, as well as color and pulse Doppler interrogation, were performed of the lower extremity deep veins from the inguinal ligament to the popliteal fossa, with documentation of the visualized calf veins. COMPARISON: None. FINDINGS: The common femoral, femoral, popliteal, and the visualized calf veins are normally compressible, and free of intraluminal thrombus. Color and pulse Doppler demonstrate normal phasic intraluminal flow. There is normal augmentation response to distal compression maneuver. IMPRESSION: No findings of lower extremity deep venous thrombosis. Dictated by: John Raman M.D. on 10/31/2024 at 14:42 Approved by: John Raman M.D. on 10/31/2024 at 14:42
--- NOTE | 2024-10-31 15:41 | PC.NURSE ---
Pt in obvious pain distress. Points to right groin. Discussed plan of care,understands.
--- NOTE | 2024-10-31 16:06 | ED.EXTPRO ---
HPI - Extremity Problem <Theresa Zuniga PA-C - Last Filed: 10/31/24 19:34> General Chief complaint: Extremity Problem,Nontraumatic Stated complaint: right side Groin pain Time Seen by Provider: 10/31/24 15:57 Source: patient Mode of arrival: Ambulatory History of Present Illness HPI Narrative: Mr. Harris is a very pleasant 74-year-old male with a past medical history of AFib on Eliquis, BPH, HLD, oa who presents to the emergency department for right groin/thigh pain x 24 hours. Patient reports recent travel to and from [place] via plane, with multiple days of long car travel. Yesterday he started developing pain on his right superior inner thigh into the groin region, worse with movement, has been progressively getting worse. He had no inciting injury. Reports remote history of having right hip replaced. He has some varicose veins in this region that are new. He is concerned about possible DVT however does report being compliant with his Eliquis. Denies any fall or trauma to the area. No numbness tingling weakness of the lower extremity, no abdominal pain or mass, no dysuria, scrotal pain or swelling, fevers, chills, redness of the lower extremity or calf pain. He drove himself to the ER. 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 Related Data Home Medications ?Medication ?Instructions ?Recorded ?Confirmed docusate sodium 100 mg capsule 200 PO Q DAY ##0 05/01/16 08/26/24 ascorbic acid (vitamin C) 1,000 mg 1,000 mg PO DAILY 07/06/21 08/26/24 tablet cholecalciferol (vitamin D3) 50 50 mcg PO DAILY 07/06/21 08/26/24 mcg (2,000 unit) capsule multivitamin 1 tab PO DAILY 07/06/21 08/26/24 omega-3 fatty acids 1,000 mg 1,000 mg PO DAILY 07/06/21 08/26/24 capsule apixaban 5 mg tablet (Eliquis) 5 mg PO BID 08/26/24 08/26/24 Previous Rx's ?Medication ?Instructions ?Recorded rosuvastatin 5 mg tablet 5 mg PO DAILY #90 tabs 07/24/24 hydrocodone 5 mg-acetaminophen 325 1 tab PO Q4-6H PRN pain #10 tabs 10/31/24 mg tablet Allergies Allergy/AdvReac Type Severity Reaction Status Date / Time No Known Drug Allergies Allergy Verified 10/31/24 14:03 Review of Systems <Theresa Zuniga PA-C - Last Filed: 10/31/24 19:34> Review of Systems ROS Unobtainable: All systems reviewed & are unremarkable except as noted in HPI and below Patient History <Theresa Zuniga PA-C - Last Filed: 10/31/24 19:34> Medical History Paresthesia Dorsalgia of lumbar region Cervicalgia Polyneuropathy, unspecified Erectile dysfunction Overweight History of colonic polyps History of vertebral compression fracture Chronic anticoagulation Impaired fasting glucose BPH w urinary obs/LUTS Mixed hyperlipidemia Paroxysmal atrial fibrillation Osteoarthritis of left knee Tricuspid valve regurgitation ADD (attention deficit disorder) without hyperactivity (09/22/11) History of cardioversion Surgical History History of hemorrhoidectomy Biceps tendon rupture History of vasectomy H/O cardiac radiofrequency ablation History of right hip replacement (~07/2012) History of oral surgery Status post arthroscopy History of cataract removal with insertion of prosthetic lens Family History Brother Age: 77 Diabetes mellitus Heart disease Prostate cancer Father Diabetes mellitus Heart disease Hypertension High cholesterol Alcoholism Parkinsons Social History marital status: details: 03/2024, 2 daughters, 1 son, 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 Well-developed patient, in no acute distress. HEAD: Atraumatic. Normocephalic. EYES: No scleral icterus. No injection or drainage. NECK: Trachea midline. Cervical ROM intact. CARDIOVASCULAR: Regular rate and rhythm. RESPIRATORY: ?Nonlabored respirations. ?Speaking in clear, full sentences. ?Clear to auscultation. Breath sounds equal bilaterally. No wheezes, rales, or rhonchi. ? GASTROINTESTINAL: Abdomen soft, non-tender, nondistended. EXTREMITIES: 2+ BL PT and DP pulses. No calf swelling or tenderness bilaterally. Patient does have tenderness to palpation within the proximal inner right thigh along the adductor muscles. There are superficial veins present in this region not present on the left thigh. He has pain with flexion and external rotation of the right hip. Pain with ambulation. NEURO: AOx3. ?Clear speech. ? SKIN: No rash or erythema of visible areas Initial Vital Signs Initial Vital Signs: Vital Signs Temperature 97.7 F 10/31/24 14:03 Pulse Rate 71 10/31/24 14:03 Respiratory Rate 20 10/31/24 14:03 Blood Pressure 147/76 H 10/31/24 14:03 Pulse Oximetry 98 10/31/24 14:03 Oxygen Delivery Method Room Air 10/31/24 14:03 <Samantha Krishnamurthy MD - Last Filed: 10/31/24 23:58> Initial Vital Signs Initial Vital Signs: Vital Signs Temperature 97.7 F 10/31/24 14:03 Pulse Rate 71 10/31/24 14:03 Respiratory Rate 20 10/31/24 14:03 Blood Pressure 147/76 H 10/31/24 14:03 Pulse Oximetry 98 10/31/24 14:03 Oxygen Delivery Method Room Air 10/31/24 14:03 Course <Theresa Zuniga PA-C - Last Filed: 10/31/24 19:34> Orders Ordered: ED Orders 10/31/24 16:18 XR hip w pel RT 2V Stat 10/31/24 16:42 D Dimer Stat Vital Signs Vital signs: Vital Signs - 8 hr 10/31/24 18:05 Temperature 97.6 F Pulse Rate 89 Respiratory Rate 16 Blood Pressure 146/93 H Pulse Oximetry 99 Oxygen Delivery Method Room Air <Samantha Krishnamurthy MD - Last Filed: 10/31/24 23:58> Orders Ordered: ED Orders 10/31/24 16:18 XR hip w pel RT 2V Stat 10/31/24 16:42 D Dimer Stat Vital Signs Vital signs: Vital Signs - 8 hr 10/31/24 18:05 Temperature 97.6 F Pulse Rate 89 Respiratory Rate 16 Blood Pressure 146/93 H Pulse Oximetry 99 Oxygen Delivery Method Room Air MDM - Extremity (Nontraumatic) <Theresa Zuniga PA-C - Last Filed: 10/31/24 19:34> Lab Data Labs: Lab Results 10/31/24 Range/Units 16:42 D-Dimer < 215 (<500) ng/ml Imaging Data RLE Venous US: Radiologist's Impression: PROCEDURE: US PERIPH VENOUS LOW EXTREM RT INDICATIONS: r/o dvt TECHNIQUE: Real-time imaging, as well as color and pulse Doppler interrogation, were performed of the lower extremity deep veins from the inguinal ligament to the popliteal fossa, with documentation of the visualized calf veins. COMPARISON: None. FINDINGS: The common femoral, femoral, popliteal, and the visualized calf veins are normally compressible, and free of intraluminal thrombus. Color and pulse Doppler demonstrate normal phasic intraluminal flow. There is normal augmentation response to distal compression maneuver. IMPRESSION: No findings of lower extremity deep venous thrombosis. Dictated by: John Raman M.D. on 10/31/2024 at 14:42 Approved by: John Raman M.D. on 10/31/2024 at 14:42 Right Hip and Pelvis XR: Radiologist's Impression: PROCEDURE: XR HIP W PEL IF DONE RT 2V INDICATIONS: pain anterior R hip/thigh worse w mvmt, hardware TECHNIQUE: AP pelvis with lateral view(s) of the right hip(s). COMPARISON: [facility], , XR HIP W PEL IF DONE LT 2V, 08/05/2020, 8:59. FINDINGS: Bones: No fractures or dislocations. Right hip arthroplasty components are present and appear intact. No radiographic sign of loosening. Pelvic ring appears intact. No suspicious bony lesions. Degenerative disc height loss in the lumbar spine. Soft tissues: The visualized bowel gas pattern is normal. No suspicious soft tissue calcifications. IMPRESSION: No acute bony abnormality. Intact right hip arthroplasty hardware. Dictated by: Liliam Jordan M.D. on 10/31/2024 at 16:44 Approved by: Liliam Jordan M.D. on 10/31/2024 at 16:46 MDM Narrative Medical decision making narrative: 74-year-old male with a past medical history of AFib on Eliquis, BPH, HLD, oa who presents to the emergency department for right groin/thigh pain x 24 hours. Differential diagnosis includes but is not limited to varicose veins, adductor muscle strain, hip arthritis, hardware failure, DVT, etc. On exam patient is in no acute distress, nontoxic appearing, all vital signs within normal limits. He is focal tenderness palpation of the proximal right inner thigh along a region of varicose veins that are new. He is significant pain with movement of that right hip difficulty walking. Wells score for DVT is 3, high-risk group, ultrasound was obtained in triage and is negative for DVT however we will check D-dimer and if elevated recommend repeat ultrasound in 1 week, continue his chronic anticoagulation is normal. We will obtain x-ray hip and pelvis to rule out bony abnormality. Patient drove himself here would not like pain medication in the ED however will prescribe short course of pain medicine for home. X-ray reveals no acute bony abnormality, intact right hip arthroplasty hardware. He does have degenerative disc height loss in the lumbar spine. D-dimer is negative, no indication for scheduled repeat ultrasound at this time. Discuss suspicion for musculoskeletal etiology of patient's pain at this time. Recommended Tylenol, heat therapy, supportive Binu wrap, prescription pain medicine as needed for severe breakthrough pain. Discussed risks of narcotics. Advised follow up with PCP, discussed strict ED return precautions. Patient verbalized understanding of all information agreeable with the plan, he is ambulatory but with discomfort. He is stable for discharge home. <Samantha Krishnamurthy MD - Last Filed: 10/31/24 23:58> Lab Data Labs: Lab Results 10/31/24 Range/Units 16:42 D-Dimer < 215 (<500) ng/ml Discharge Plan Departure Patient Disposition: Home Clinical Impression: Acute pain of right lower extremity Instructions: DI for Leg Pain Activity Restrictions/Additional Instructions: Dear Mr. Harris, Thank you for coming to the emergency department. Today you were evaluated for right lower extremity/groin pain. Your ultrasound revealed no DVT. Your right hip hardware is intact. I would like you to rest, use ice/heat therapy, use the prescribed pain medication in addition to Tylenol, and follow up with the primary care doctor. Please return to the ER of the leg becomes very swollen, red, hot, you develop fevers, significant swelling, color change or any other concerns. You have been prescribed a short course of narcotic medications. These are potentially dangerous and addictive medications that should be used carefully. While on these medications you cannot drive or operate heavy machinery. Additionally, you cannot sign legal documents or perform any duties such as this. Many people get constipated on narcotic medications so it would be advisable to discuss stool softeners with the pharmacist when you lemon picker your prescription. Please understand that we cannot provide further refills of narcotics or controlled substances through the ED and your pain management will need to be through your Primary Care Provider Please follow up with your primary care doctor within the next 2-3 days for ER follow-up. (If you do not have a PCP you can call [phone]. ?to schedule an appointment with an [facility] Primary Care Provider) IF YOU DEVELOP ANY NEW OR WORSENING SYMPTOMS, RETURN TO THE ER! Please read the attached instructions, they highlight more specific treatments and interventions for you at home. Thank you for letting me participate in your care, Theresa Zuniga PA-C Prescriptions: New hydrocodone-acetaminophen 5-325 mg tablet 1 tab PO Q4-6H PRN (Reason: pain) Qty: 10 0RF No Action docusate sodium 100 MG capsule 200 PO Q DAY Qty: 0 cholecalciferol (vitamin D3) 50 mcg (2,000 unit) capsule 50 mcg PO DAILY ascorbic acid (vitamin C) 1,000 mg tablet 1,000 mg PO DAILY omega-3 fatty acids 1,000 mg capsule 1,000 mg PO DAILY multivitamin Tablet 1 tab PO DAILY rosuvastatin 5 mg tablet 5 mg PO DAILY Qty: 90 3RF Eliquis 5 mg tablet 5 mg PO BID Referrals: Júnior Flores MD [Primary Care Provider, Internal Medicine] Stand Alone Forms: Patient Portal/API ED Sign-out <Samantha Krishnamurthy MD - Last Filed: 10/31/24 23:58> Cosign ED Attending Jihan Attestation: I was immediately available in the department for consultation throughout this patient's visit. Samantha Krishnamurthy MD
--- NOTE | 2024-10-31 16:18 | DI.RAD.S_ITS ---
PROCEDURE: XR HIP W PEL IF DONE RT 2V INDICATIONS: pain anterior R hip/thigh worse w mvmt, hardware TECHNIQUE: AP pelvis with lateral view(s) of the right hip(s). COMPARISON: [facility], , XR HIP W PEL IF DONE LT 2V, 08/05/2020, 8:59. FINDINGS: Bones: No fractures or dislocations. Right hip arthroplasty components are present and appear intact. No radiographic sign of loosening. Pelvic ring appears intact. No suspicious bony lesions. Degenerative disc height loss in the lumbar spine. Soft tissues: The visualized bowel gas pattern is normal. No suspicious soft tissue calcifications. IMPRESSION: No acute bony abnormality. Intact right hip arthroplasty hardware. Dictated by: Liliam Jordan M.D. on 10/31/2024 at 16:44 Approved by: Liliam Jordan M.D. on 10/31/2024 at 16:46
[2024-10-31 18:05] VITALS: BP 146/93; PULSE 89; RESP 16; TEMP 36.4; O2SAT 99
== END 2024-10-31 18:06 | disposition home or self-care (01) ==
PROVIDERS: Emergency Provider Physician Assistant; PCP Internal Medicine
DX: M79.604 Pain in right leg (principal); Z79.01 Long term (current) use of anticoagulants
CPT/HCPCS: 73502; 85379; 93971; 99281; 99283